=== PATIENT | female | born 1980 | race Two or more races ===

== ENCOUNTER → 2024-06-15 | Outpatient (CLI) | payer MEDICAID, SELFPAY ==
--- NOTE | 2024-06-15 14:00 | ECHO_ITS ---
Transthoracic Echo Report Ht (in): 60 Wt (lb): 149 Exam Location: Echo Lab Status: Preadmit Train Crew Member: Ashley Sotelo Indications: Procedure Performed: BP: / HR: Rhythm: Sinus Technical Quality: Fair MEASUREMENTS (Male / Female) Normal Values 2D ECHO LV Diastolic Diameter PLAX 4.0 cm 4.2 - 5.9 / 3.9 - 5.3 cm LV Systolic Diameter PLAX 2.8 cm IVS Diastolic Thickness 0.9 cm 0.6 - 1.0 / 0.6 - 0.9 cm LVPW Diastolic Thickness 0.8 cm 0.6 - 1.0 / 0.6 - 0.9 cm LV Relative Wall Thickness 0.4 LVOT Diameter 1.7 cm LA Volume Index 24.0 cm?/m? 16 - 28 cm?/m? Ascending Aorta Diameter 2.5 cm M-MODE Aortic Root Diameter MM 2.5 cm LA Systolic Diameter MM 3.9 cm LA Ao Ratio MM 1.6 AV Cusp Separation MM 2.1 cm DOPPLER AV Peak Velocity 136.0 cm/s AV Peak Gradient 7.4 mmHg AV Mean Gradient 4.0 mmHg AV Velocity Time Integral 27.3 cm LVOT Peak Velocity 131.0 cm/s LVOT Peak Gradient 6.9 mmHg LVOT Velocity Time Integral 24.1 cm AV Area Cont Eq vti 2.0 cm? AV Area Cont Eq pk 2.2 cm? MV Peak Velocity 87.5 cm/s MV Peak Gradient 3.1 mmHg MV Mean Velocity 56.5 cm/s MV Mean Gradient 1.0 mmHg MV Area PHT 4.2 cm? Mitral E Point Velocity 85.1 cm/s Mitral A Point Velocity 80.2 cm/s Mitral E to A Ratio 1.1 LV E' Lateral Velocity 15.5 cm/s Mitral E to LV E' Lateral Ratio 5.5 LV E' Septal Velocity 9.4 cm/s Mitral E to LV E' Septal Ratio 9.1 FINDINGS Left Ventricle Normal left ventricular size, wall thickness, systolic function with no obvious regional wall motion abnormalities. The ejection fraction is visually estimated at 55-60 %. Right Ventricle The right ventricle is normal in size and systolic function. Left Atrium The left atrium is normal by two-dimensional, color flow and Doppler imaging with no structural abnormalities, no thrombus formation present. Right Atrium The right atrium is normal by two-dimensional imaging, color flow and Doppler imaging with no struct ural abnormalities, no thrombus formation present. Atrial Septum The interatrial septum appears normal with no evidence of a shunt. Aorta The aorta is normal by two-dimensional, color flow and Doppler interrogation. Mitral Valve The mitral valve is normal by two-dimensional, color flow and Doppler interrogation. There is trace mitral valve regurgitation. Aortic Valve The aortic valve is trileaflet and normal by two-dimensional, color flow and Doppler interrogation. There is no significant aortic valve regurgitation. Tricuspid Valve The tricuspid valve is normal by two-dimensional, color flow and Doppler interrogation. There is tra ce tricuspid valve regurgitation. Pulmonic Valve There is no significant pulmonic valve regurgitation. Vessels The pulmonary artery appears normal. The inferior vena cava pulmonary and hepatic veins appear kenya l. Pericardium The pericardium is normal by two-dimensional imaging. There is no significant pericardial effusion. CONCLUSIONS Indication: Malignant neoplasm of right female breast. Normal LV size and function. Estimated EF 55-60% Normal RV size and function. Trace MR, TR. Dru Johnson (Electronically Signed) Final Date: 15 June 2024 19:05
== END | disposition home or self-care (01) ==
LOC: SDIM 14:07
PROVIDERS: Referring Provider Internal Medicine Hematology & Oncology; Visit Provider Internal Medicine Hematology & Oncology
DX: I08.1 Rheumatic disorders of both mitral and tricuspid valves (principal); C50.411 Malignant neoplasm of upper-outer quadrant of right female breast
CPT/HCPCS: 93306

== ENCOUNTER 2024-06-16 08:43 | Outpatient (RCR) | payer MEDICAID, SELFPAY ==
[2024-06-15 10:25] LABS: Basophils % (Auto) 1 % (0-2.5); Eosinophils # (Auto) 0.1 Thou/mm3 (0.0-0.5); Eosinophils % (Auto) 5 % (0-10); Hematocrit 34.3 % (36.0-46.0); Hemoglobin 11.2 g/dL (12.0-16.0); Immature Granulocytes % (Auto) 0 % (0-0); Immature Granulocytes Auto 0.01 Thou/mm3 (0.00-0.00); Lymphocytes % (Auto) 36 % (10-50); Mean Corpuscular HGB Conc 32.7 g/dl (31.0-37.0); Mean Corpuscular Hemoglobin 26.8 pg (25.0-35.0); Mean Corpuscular Volume 82 fL (80-100); Monocytes # (Auto) 0.4 Thou/mm3 (0.0-0.8); Monocytes % (Auto) 13 % (0-12); Neutrophils # (Auto) 1.3 Thou/mm3 (1.8-7.7); Neutrophils % (Auto) 45 % (37-80); Nucleated Red Blood Cell % 0 /100 WBC (0); Platelet Count 139 Thou/mm3 (140-440); RDW Standard Deviation 42.5 fL (36.4-46.3); Red Blood Count 4.18 Miln/mm3 (4.00-5.20)
[2024-06-15 10:46] LABS: White Blood Count 2.8 Thou/mm3 (3.6-11.0)
[2024-06-15 10:47] LABS: Alanine Aminotransferase 75 U/L (10-49); Albumin, Serum 4.4 gm/dL (3.5-5.0); Albumin/Globulin Ratio 1.6 (1.2-2.2); Alkaline Phosphatase 210 U/L (46-116); Anion Gap 7 (7-16); Aspartate Amino Transferase 77 U/L (0-34); BUN/Creatinine Ratio 26 Ratio (12-20); Bilirubin,Total 0.4 mg/dL (0.3-1.2); Blood Urea Nitrogen 13 mg/dL (9-23); Calcium 9.9 mg/dL (8.3-10.6); Calcium (Corrected) 9.9 mg/dL (8.5-10.1); Carbon Dioxide 23.9 mMol/L (20.0-31.0); Chloride 107 mMol/L (98-107); Creatinine (Component) 0.5 mg/dL (0.6-1.3); Globulin 2.8 gm/dL (2.3-3.5); Glucose 102 mg/dL (74-106); Osmolality,Calculated 275 (275-295); Potassium 3.3 mMol/L (3.4-5.1); Sodium 138 mMol/L (136-145); Total Protein 7.2 gm/dL (5.7-8.2); eGFR > 60 See Note
[2024-06-16 09:10] LABS: Basophils % (Auto) 1 % (0-2.5); Eosinophils # (Auto) 0.1 Thou/mm3 (0.0-0.5); Eosinophils % (Auto) 4 % (0-10); Hematocrit 32.8 % (36.0-46.0); Hemoglobin 10.9 g/dL (12.0-16.0); Immature Granulocytes % (Auto) 0 % (0-0); Lymphocytes # (Auto) 0.9 Thou/mm3 (1.0-4.8); Lymphocytes % (Auto) 38 % (10-50); Mean Corpuscular HGB Conc 33.2 g/dl (31.0-37.0); Mean Corpuscular Hemoglobin 27.5 pg (25.0-35.0); Mean Corpuscular Volume 83 fL (80-100); Monocytes # (Auto) 0.3 Thou/mm3 (0.0-0.8); Monocytes % (Auto) 11 % (0-12); Neutrophils # (Auto) 1.1 Thou/mm3 (1.8-7.7); Neutrophils % (Auto) 46 % (37-80); Nucleated Red Blood Cell % 0 /100 WBC (0); Platelet Count 122 Thou/mm3 (140-440); RDW Standard Deviation 42.5 fL (36.4-46.3); Red Blood Count 3.97 Miln/mm3 (4.00-5.20)
[2024-06-16 09:37] LABS: Alanine Aminotransferase 73 U/L (10-49); Albumin, Serum 4.3 gm/dL (3.5-5.0); Albumin/Globulin Ratio 1.6 (1.2-2.2); Alkaline Phosphatase 206 U/L (46-116); Anion Gap 4 (7-16); Aspartate Amino Transferase 77 U/L (0-34); BUN/Creatinine Ratio 40 Ratio (12-20); Bilirubin,Total 0.4 mg/dL (0.3-1.2); Blood Urea Nitrogen 16 mg/dL (9-23); Calcium 9.6 mg/dL (8.3-10.6); Calcium (Corrected) 9.6 mg/dL (8.5-10.1); Carbon Dioxide 25.8 mMol/L (20.0-31.0); Chloride 108 mMol/L (98-107); Creatinine (Component) 0.4 mg/dL (0.6-1.3); Globulin 2.7 gm/dL (2.3-3.5); Glucose 105 mg/dL (74-106); Osmolality,Calculated 276 (275-295); Potassium 3.5 mMol/L (3.4-5.1); Sodium 138 mMol/L (136-145); eGFR > 60 See Note
[2024-06-16 10:00] LABS: White Blood Count 2.4 Thou/mm3 (3.6-11.0)
== END 2024-06-25 23:59 | disposition home or self-care (01) ==
LOC: SCTC 08:43
PROVIDERS: Visit Provider Internal Medicine Hematology & Oncology
DX: Z51.11 Encounter for antineoplastic chemotherapy (principal); C50.811 Malignant neoplasm of overlapping sites of right female breast; Z17.421 Hormone receptor negative with human epidermal growth factor receptor 2 negative status; Z90.11 Acquired absence of right breast and nipple; N64.4 Mastodynia
CPT/HCPCS: 36591; 80053; 85025; 96367; 96413; A4216; J1642; J7050; J9354

== ENCOUNTER → 2024-06-22 | Outpatient (CLI) | payer MEDICAID, SELFPAY ==
--- NOTE | 2024-06-22 08:30 | XR_ITS ---
Examination: MRI brain with intravenous contrast TECHNIQUE: Multiple axial sagittal coronal brain MRI images post intravenous ministration 13 cc gadolinium Exam date and time: June 22, 2024 0857 hours Comparison June 03, 2023 INDICATIONS: Diagnosis malignant neoplasm upper outer quadrant right female breast post mastectomy chemotherapy radiation therapy, staging FINDINGS: Ventricles are normal in size and configuration No mass effect upon the ventricular system No effacement sulcal markings No pituitary macroadenoma microadenoma No abnormal enhancing cerebellar or cerebral lesions IMPRESSION: No abnormal enhancing cerebellar or cerebral lesions
== END | disposition home or self-care (01) ==
LOC: SMRI 07:57
PROVIDERS: PCP Registered Nurse Community Health; Referring Provider Internal Medicine Hematology & Oncology; Visit Provider Internal Medicine Hematology & Oncology
DX: C50.411 Malignant neoplasm of upper-outer quadrant of right female breast (principal)
CPT/HCPCS: 70552; A9579

== ENCOUNTER → 2024-06-29 | Outpatient (CLI) | payer MEDICAID, SELFPAY ==
--- NOTE | 2024-06-29 10:30 | XR_ITS ---
Examination: CT chest with intravenous contrast 2-D sagittal and coronal reconstructions Exam date and time: June 29, 2024 10:52 AM Comparison March 16, 2024 INDICATIONS: Diagnosis malignant neoplasm upper outer quadrant right female breast April 2023, left shoulder pain 2 months, restaging CTDI:vol (mGy) 12.3 DLP: (mGycm) 471 Technique: Multiple axial sections of the thorax have been obtained. Sections have been obtained, 3 mm slice thickness. Mediastinal and lung density settings have been obtained. Intravenous contrast administered, 60 cc Isovue-370. 2-D sagittal, coronal images obtained. Low dose protocols were performed. One or more of the following dose reduction techniques were used; automated exposure control, adjustment of the mA and/or KV according to patient size, use of iterative reconstruction technique. Findings: Right mastectomy Right axillary surgical clips and scar formation in the right axilla Pleural reaction anterior right hemithorax which may be secondary to radiation therapy The aorta pulmonary arteries are not enlarged No paratracheal tracheobronchial or bronchopulmonary adenopathy No interval pneumonia, pulmonary edema, pleural fluid or pulmonary nodules No liver or splenic lesion No gallstones No pancreatic mass Aorta normal size No abdominal lymphadenopathy visualized IMPRESSION: No interval metastatic disease
== END | disposition home or self-care (01) ==
PROVIDERS: PCP Registered Nurse Community Health; Referring Provider Internal Medicine Hematology & Oncology; Visit Provider Internal Medicine Hematology & Oncology
DX: M25.512 Pain in left shoulder (principal); C50.411 Malignant neoplasm of upper-outer quadrant of right female breast
CPT/HCPCS: 71260; A4649; Q9967

== ENCOUNTER → 2024-06-30 | Outpatient (CLI) | payer MEDICAID, SELFPAY ==
--- NOTE | 2024-06-30 10:15 | XR_ITS ---
EXAMINATION: PET/CT FUSION SKULL TO THIGH EXAM DATE AND TIME: June 30, 2024 1105 hours Comparison November 05, 2023 INDICATIONS: Diagnosis breast cancer post treatment restaging CTDI:vol (mGy) 4.43 DLP: (mGycm) 404 PROCEDURE: 16 mCi FDG was administered intravenously To allow for distribution and uptake of radiotracer, the patient was allowed to rest quietly in a shielded room. Imaging was performed on an integrated 16-slice PET/CT scanner, with scanning from the skull base to the mid thigh. Serum blood glucose at the time of the injection was measured 92 mg/dL. CT scanning was performed without oral or intravenous contrast material. FINDINGS: Head and Neck: There is no willie hypermetabolism in the neck. The visualized portions of the brain are normal in appearance on CT. Chest: Right mastectomy Surgical clips in the right axilla No hypermetabolic breast chest wall or axillary lymphadenopathy Presumed post irradiation change in the anterior pleural surface right hemithorax Abdomen and Pelvis: There is no willie hypermetabolism in retroperitoneal or pelvic chains. The spleen is normal in size and FDG avidity. Musculoskeletal: Marrow uptake is within normal range. IMPRESSION: No interval metastatic disease
== END | disposition home or self-care (01) ==
LOC: CDIM 09:48
PROVIDERS: PCP Registered Nurse Community Health; Referring Provider Specialist; Visit Provider Specialist
DX: C50.919 Malignant neoplasm of unspecified site of unspecified female breast (principal)
CPT/HCPCS: 78815; A9552

== ENCOUNTER 2024-07-26 08:23 | Outpatient (RCR) | payer MEDICAID, SELFPAY ==
[2024-07-06 11:38] LABS: Basophils % (Auto) 1 % (0-2.5); Eosinophils # (Auto) 0.1 Thou/mm3 (0.0-0.5); Eosinophils % (Auto) 3 % (0-10); Hematocrit 33.1 % (36.0-46.0); Hemoglobin 10.9 g/dL (12.0-16.0); Immature Granulocytes % (Auto) 0 % (0-0); Lymphocytes # (Auto) 1.1 Thou/mm3 (1.0-4.8); Lymphocytes % (Auto) 39 % (10-50); Mean Corpuscular HGB Conc 32.9 g/dl (31.0-37.0); Mean Corpuscular Volume 79 fL (80-100); Monocytes # (Auto) 0.3 Thou/mm3 (0.0-0.8); Monocytes % (Auto) 12 % (0-12); Neutrophils # (Auto) 1.2 Thou/mm3 (1.8-7.7); Neutrophils % (Auto) 44 % (37-80); Nucleated Red Blood Cell % 0 /100 WBC (0); Platelet Count 140 Thou/mm3 (140-440); RDW Standard Deviation 43.8 fL (36.4-46.3)
[2024-07-06 11:56] LABS: Alanine Aminotransferase 51 U/L (10-49); Albumin, Serum 4.6 gm/dL (3.5-5.0); Albumin/Globulin Ratio 1.8 (1.2-2.2); Alkaline Phosphatase 235 U/L (46-116); Anion Gap 9 (7-16); Aspartate Amino Transferase 58 U/L (0-34); BUN/Creatinine Ratio 24 Ratio (12-20); Bilirubin,Total 0.4 mg/dL (0.3-1.2); Blood Urea Nitrogen 12 mg/dL (9-23); Calcium 9.9 mg/dL (8.3-10.6); Calcium (Corrected) 9.9 mg/dL (8.5-10.1); Carbon Dioxide 25.2 mMol/L (20.0-31.0); Chloride 106 mMol/L (98-107); Creatinine (Component) 0.5 mg/dL (0.6-1.3); Globulin 2.6 gm/dL (2.3-3.5); Glucose 92 mg/dL (74-106); Osmolality,Calculated 279 (275-295); Potassium 3.4 mMol/L (3.4-5.1); Sodium 140 mMol/L (136-145); Total Protein 7.2 gm/dL (5.7-8.2); eGFR > 60 See Note
[2024-07-06 12:21] LABS: White Blood Count 2.7 Thou/mm3 (3.6-11.0)
[2024-07-26 08:59] LABS: Basophils % (Auto) 1 % (0-2.5); Eosinophils # (Auto) 0.1 Thou/mm3 (0.0-0.5); Eosinophils % (Auto) 4 % (0-10); Hematocrit 34.7 % (36.0-46.0); Hemoglobin 11.3 g/dL (12.0-16.0); Immature Granulocytes % (Auto) 0 % (0-0); Lymphocytes # (Auto) 1.3 Thou/mm3 (1.0-4.8); Lymphocytes % (Auto) 45 % (10-50); Mean Corpuscular HGB Conc 32.6 g/dl (31.0-37.0); Mean Corpuscular Hemoglobin 25.1 pg (25.0-35.0); Mean Corpuscular Volume 77 fL (80-100); Monocytes # (Auto) 0.4 Thou/mm3 (0.0-0.8); Monocytes % (Auto) 13 % (0-12); Neutrophils # (Auto) 1.1 Thou/mm3 (1.8-7.7); Neutrophils % (Auto) 38 % (37-80); Nucleated Red Blood Cell % 0 /100 WBC (0); Platelet Count 110 Thou/mm3 (140-440); RDW Standard Deviation 47.2 fL (36.4-46.3)
[2024-07-26 09:20] LABS: Alanine Aminotransferase 62 U/L (10-49); Albumin, Serum 4.3 gm/dL (3.5-5.0); Albumin/Globulin Ratio 1.6 (1.2-2.2); Alkaline Phosphatase 268 U/L (46-116); Anion Gap 9 (7-16); Aspartate Amino Transferase 88 U/L (0-34); BUN/Creatinine Ratio 25 Ratio (12-20); Bilirubin,Total 0.8 mg/dL (0.3-1.2); Blood Urea Nitrogen 10 mg/dL (9-23); Calcium 10.6 mg/dL (8.3-10.6); Calcium (Corrected) 10.6 mg/dL (8.5-10.1); Carbon Dioxide 25.2 mMol/L (20.0-31.0); Chloride 107 mMol/L (98-107); Creatinine (Component) 0.4 mg/dL (0.6-1.3); Globulin 2.7 gm/dL (2.3-3.5); Glucose 92 mg/dL (74-106); Osmolality,Calculated 280 (275-295); Potassium 3.5 mMol/L (3.4-5.1); Sodium 141 mMol/L (136-145); eGFR > 60 See Note
== END 2024-07-26 23:59 | disposition home or self-care (01) ==
LOC: SCTC 08:23
PROVIDERS: PCP Registered Nurse Community Health; Referring Provider Registered Nurse Community Health; Visit Provider Internal Medicine Hematology & Oncology
DX: Z51.11 Encounter for antineoplastic chemotherapy (principal); C50.811 Malignant neoplasm of overlapping sites of right female breast; Z17.421 Hormone receptor negative with human epidermal growth factor receptor 2 negative status; Z90.11 Acquired absence of right breast and nipple
CPT/HCPCS: 36591; 80053; 85025; 96367; 96372; 96413; A4216; J1100; J1642; J2405; J3490; J7050; J9354

== ENCOUNTER 2024-08-25 09:33 | Outpatient (RCR) | payer MEDICAID, SELFPAY ==
[2024-08-03 16:15] LABS: Basophils % (Auto) 1 % (0-2.5); Eosinophils # (Auto) 0.1 Thou/mm3 (0.0-0.5); Eosinophils % (Auto) 3 % (0-10); Hematocrit 32.8 % (36.0-46.0); Hemoglobin 10.7 g/dL (12.0-16.0); Immature Granulocytes % (Auto) 0 % (0-0); Immature Granulocytes Auto 0.01 Thou/mm3 (0.00-0.00); Lymphocytes # (Auto) 1.2 Thou/mm3 (1.0-4.8); Lymphocytes % (Auto) 38 % (10-50); Mean Corpuscular HGB Conc 32.6 g/dl (31.0-37.0); Mean Corpuscular Hemoglobin 25.1 pg (25.0-35.0); Mean Corpuscular Volume 77 fL (80-100); Monocytes # (Auto) 0.4 Thou/mm3 (0.0-0.8); Monocytes % (Auto) 12 % (0-12); Neutrophils # (Auto) 1.5 Thou/mm3 (1.8-7.7); Neutrophils % (Auto) 47 % (37-80); Nucleated Red Blood Cell % 0 /100 WBC (0); Platelet Count 159 Thou/mm3 (140-440); RDW Standard Deviation 50.8 fL (36.4-46.3); Red Blood Count 4.27 Miln/mm3 (4.00-5.20); White Blood Count 3.3 Thou/mm3 (3.6-11.0)
[2024-08-03 16:39] LABS: Alanine Aminotransferase 81 U/L (10-49); Albumin, Serum 4.6 gm/dL (3.5-5.0); Albumin/Globulin Ratio 1.8 (1.2-2.2); Alkaline Phosphatase 284 U/L (46-116); Anion Gap 9 (7-16); Aspartate Amino Transferase 82 U/L (0-34); BUN/Creatinine Ratio 22 Ratio (12-20); Bilirubin,Total 0.8 mg/dL (0.3-1.2); Blood Urea Nitrogen 11 mg/dL (9-23); Calcium 9.8 mg/dL (8.3-10.6); Calcium (Corrected) 9.8 mg/dL (8.5-10.1); Carbon Dioxide 26.6 mMol/L (20.0-31.0); Chloride 106 mMol/L (98-107); Creatinine (Component) 0.5 mg/dL (0.6-1.3); Globulin 2.6 gm/dL (2.3-3.5); Glucose 106 mg/dL (74-106); Osmolality,Calculated 282 (275-295); Potassium 3.8 mMol/L (3.4-5.1); Sodium 142 mMol/L (136-145); Total Protein 7.2 gm/dL (5.7-8.2); eGFR > 60 See Note
[2024-08-24 16:50] LABS: Basophils % (Auto) 1 % (0-2.5); Eosinophils # (Auto) 0.1 Thou/mm3 (0.0-0.5); Eosinophils % (Auto) 2 % (0-10); Hematocrit 33.8 % (36.0-46.0); Immature Granulocytes % (Auto) 0 % (0-0); Lymphocytes # (Auto) 1.5 Thou/mm3 (1.0-4.8); Lymphocytes % (Auto) 34 % (10-50); Mean Corpuscular HGB Conc 32.5 g/dl (31.0-37.0); Mean Corpuscular Hemoglobin 25.1 pg (25.0-35.0); Mean Corpuscular Volume 77 fL (80-100); Monocytes # (Auto) 0.4 Thou/mm3 (0.0-0.8); Monocytes % (Auto) 10 % (0-12); Neutrophils # (Auto) 2.2 Thou/mm3 (1.8-7.7); Neutrophils % (Auto) 53 % (37-80); Nucleated Red Blood Cell % 0 /100 WBC (0); Platelet Count 175 Thou/mm3 (140-440); RDW Standard Deviation 57.4 fL (36.4-46.3); Red Blood Count 4.39 Miln/mm3 (4.00-5.20); White Blood Count 4.2 Thou/mm3 (3.6-11.0)
[2024-08-24 17:11] LABS: Alanine Aminotransferase 71 U/L (10-49); Albumin, Serum 4.4 gm/dL (3.5-5.0); Alkaline Phosphatase 251 U/L (46-116); Aspartate Amino Transferase 71 U/L (0-34); BUN/Creatinine Ratio 20 Ratio (12-20); Blood Urea Nitrogen 12 mg/dL (9-23); Calcium 9.5 mg/dL (8.3-10.6); Calcium (Corrected) 9.5 mg/dL (8.5-10.1); Carbon Dioxide 26.2 mMol/L (20.0-31.0); Creatinine (Component) 0.6 mg/dL (0.6-1.3); Glucose 102 mg/dL (74-106); eGFR > 60 See Note
[2024-08-24 17:22] LABS: Albumin/Globulin Ratio 1.6 (1.2-2.2); Bilirubin,Total 0.9 mg/dL (0.3-1.2); Globulin 2.8 gm/dL (2.3-3.5); Total Protein 7.2 gm/dL (5.7-8.2)
[2024-08-24 17:26] LABS: Anion Gap 11 (7-16); Chloride 103 mMol/L (98-107); Osmolality,Calculated 279 (275-295); Potassium 3.3 mMol/L (3.4-5.1); Sodium 140 mMol/L (136-145)
== END 2024-08-26 23:59 | disposition home or self-care (01) ==
LOC: SCTC 09:33
PROVIDERS: PCP Registered Nurse Community Health; Referring Provider Registered Nurse Community Health; Visit Provider Internal Medicine Hematology & Oncology
DX: Z51.11 Encounter for antineoplastic chemotherapy (principal); C50.811 Malignant neoplasm of overlapping sites of right female breast; Z17.1 Estrogen receptor negative status [ER-]; Z17.22 Progesterone receptor negative status; Z17.32 Human epidermal growth factor receptor 2 negative status; Z90.11 Acquired absence of right breast and nipple; Z92.3 Personal history of irradiation
CPT/HCPCS: 36591; 80053; 85025; 96360; 96367; 96413; A4216; J1100; J1642; J2405; J7030; J7050; J9354

== ENCOUNTER 2024-09-13 16:28 | Emergency (ER) | payer MEDICAID, SELFPAY ==
[2024-09-13 16:52] VITALS: BP 105/70; PULSE 79; RESP 16; TEMP 37.1; O2SAT 97; BMI 24.1
--- NOTE | 2024-09-13 17:01 | PD.EDRME ---
Rapid Medical Screening Exam RME Arrival date/time: 09/13/24 16:28 Chief Complaint: Recheck/Abnormal Lab/Rx Time Seen by Provider: 09/13/24 16:47 Vital signs: Vital Signs Temperature 98.7 F 09/13/24 16:52 Pulse Rate 79 09/13/24 16:52 Respiratory Rate 16 09/13/24 16:52 Blood Pressure 105/70 09/13/24 16:52 Pulse Oximetry (%) 97 09/13/24 16:52 Oxygen Delivery Method Room Air 09/13/24 16:52 RME Narrative: 44 yo female presents stating they were told to come to the ED for an MRI. States LFTs elevated outpatient and Dr. Juarez told them to come to the ED to get an MRI. I have greeted and performed a focused initial assessment of this patient. A comprehensive ED assessment and evaluation of the patient, analysis of all test results, and completion of the medical decision making process will be conducted by additional ED providers.
== END 2024-09-13 18:18 | disposition left against medical advice (07) ==
PROVIDERS: Emergency Provider Emergency Medicine
DX: R74.01 Elevation of levels of liver transaminase levels (principal); Z53.29 Procedure and treatment not carried out because of patient's decision for other reasons
CPT/HCPCS: 99281

== ENCOUNTER → 2024-09-17 | Outpatient (CLI) | payer MEDICAID, SELFPAY ==
--- NOTE | 2024-09-17 08:00 | XR_ITS ---
Examination: MRI abdomen with intravenous contrast. MRI abdomen without intravenous contrast. Date and time of exam: September 17, 2024 0811 hrs. Indications: Diagnosis malignant neoplasm upper outer quadrant right female breast, abnormal liver enzymes on laboratory examination this month Technique: Multiple axial, sagittal and coronal sections of the abdomen obtained. Transverse images, TR 6020, TE 107. T1 weighted transverse images, TR 582, TE 9.5. T2-weighted sagittal images, TR 4000, TE 105. T2-weighted sagittal images, TR 4000, TE 5. Coronal images, TR 4210, TE 107. Axial and coronal images are obtained post 20 cc intravenous injection, gadolinium. Findings: Precontrast images demonstrate no focal liver lesion Suspicious for tiny 1 to 2 mm gallstone No common hepatic common bile duct stones No pancreatic mass Spleen is not enlarged No hydronephrosis No ascites No retroperitoneal lymphadenopathy Postcontrast images demonstrate no abnormal liver or splenic or renal enhancing lesion Impression: No focal liver lesions Suspicious for cholelithiasis No abdominal lymphadenopathy Negative for ascites
== END | disposition home or self-care (01) ==
LOC: SMRI 08:04
PROVIDERS: Referring Provider Internal Medicine Hematology & Oncology; Visit Provider Internal Medicine Hematology & Oncology
DX: C50.411 Malignant neoplasm of upper-outer quadrant of right female breast (principal)
CPT/HCPCS: 74183; A9579

== ENCOUNTER 2024-09-22 10:25 | Outpatient (RCR) | payer MEDICAID, SELFPAY ==
[2024-08-31 12:19] LABS: Basophils % (Auto) 1 % (0-2.5); Eosinophils # (Auto) 0.1 Thou/mm3 (0.0-0.5); Eosinophils % (Auto) 3 % (0-10); Hematocrit 35.5 % (36.0-46.0); Hemoglobin 11.4 g/dL (12.0-16.0); Immature Granulocytes % (Auto) 0 % (0-0); Immature Granulocytes Auto 0.01 Thou/mm3 (0.00-0.00); Lymphocytes # (Auto) 1.2 Thou/mm3 (1.0-4.8); Lymphocytes % (Auto) 35 % (10-50); Mean Corpuscular HGB Conc 32.1 g/dl (31.0-37.0); Mean Corpuscular Hemoglobin 24.7 pg (25.0-35.0); Mean Corpuscular Volume 77 fL (80-100); Monocytes # (Auto) 0.4 Thou/mm3 (0.0-0.8); Monocytes % (Auto) 11 % (0-12); Neutrophils # (Auto) 1.7 Thou/mm3 (1.8-7.7); Neutrophils % (Auto) 50 % (37-80); Nucleated Red Blood Cell % 0 /100 WBC (0); Platelet Count 157 Thou/mm3 (140-440); RDW Standard Deviation 61.3 fL (36.4-46.3); Red Blood Count 4.62 Miln/mm3 (4.00-5.20); White Blood Count 3.5 Thou/mm3 (3.6-11.0)
[2024-08-31 12:53] LABS: Alanine Aminotransferase 89 U/L (10-49); Albumin, Serum 4.3 gm/dL (3.5-5.0); Albumin/Globulin Ratio 1.4 (1.2-2.2); Alkaline Phosphatase 296 U/L (46-116); Anion Gap 8 (7-16); Aspartate Amino Transferase 104 U/L (0-34); BUN/Creatinine Ratio 22 Ratio (12-20); Bilirubin,Total 1.3 mg/dL (0.3-1.2); Blood Urea Nitrogen 11 mg/dL (9-23); Calcium 9.6 mg/dL (8.3-10.6); Calcium (Corrected) 9.6 mg/dL (8.5-10.1); Carbon Dioxide 24.9 mMol/L (20.0-31.0); Chloride 106 mMol/L (98-107); Creatinine (Component) 0.5 mg/dL (0.6-1.3); Globulin 3.1 gm/dL (2.3-3.5); Glucose 118 mg/dL (74-106); Osmolality,Calculated 277 (275-295); Sodium 139 mMol/L (136-145); Total Protein 7.4 gm/dL (5.7-8.2); eGFR > 60 See Note
[2024-09-07 15:51] LABS: Basophils % (Auto) 0 % (0-2.5); Eosinophils # (Auto) 0.1 Thou/mm3 (0.0-0.5); Eosinophils % (Auto) 2 % (0-10); Hematocrit 35.1 % (36.0-46.0); Hemoglobin 11.2 g/dL (12.0-16.0); Immature Granulocytes % (Auto) 0 % (0-0); Lymphocytes # (Auto) 1.3 Thou/mm3 (1.0-4.8); Lymphocytes % (Auto) 29 % (10-50); Mean Corpuscular HGB Conc 31.9 g/dl (31.0-37.0); Mean Corpuscular Hemoglobin 24.8 pg (25.0-35.0); Mean Corpuscular Volume 78 fL (80-100); Monocytes # (Auto) 0.4 Thou/mm3 (0.0-0.8); Monocytes % (Auto) 9 % (0-12); Neutrophils # (Auto) 2.6 Thou/mm3 (1.8-7.7); Neutrophils % (Auto) 59 % (37-80); Nucleated Red Blood Cell % 0 /100 WBC (0); Platelet Count 192 Thou/mm3 (140-440); RDW Standard Deviation 63.5 fL (36.4-46.3); Red Blood Count 4.52 Miln/mm3 (4.00-5.20); White Blood Count 4.5 Thou/mm3 (3.6-11.0)
[2024-09-07 16:14] LABS: Alanine Aminotransferase 114 U/L (10-49); Albumin, Serum 4.5 gm/dL (3.5-5.0); Albumin/Globulin Ratio 1.5 (1.2-2.2); Alkaline Phosphatase 349 U/L (46-116); Anion Gap 4 (7-16); Aspartate Amino Transferase 100 U/L (0-34); BUN/Creatinine Ratio 25 Ratio (12-20); Bilirubin,Total 0.8 mg/dL (0.3-1.2); Blood Urea Nitrogen 10 mg/dL (9-23); Calcium 10.1 mg/dL (8.3-10.6); Calcium (Corrected) 10.1 mg/dL (8.5-10.1); Carbon Dioxide 25.8 mMol/L (20.0-31.0); Chloride 108 mMol/L (98-107); Creatinine (Component) 0.4 mg/dL (0.6-1.3); Glucose 85 mg/dL (74-106); Osmolality,Calculated 273 (275-295); Potassium 3.5 mMol/L (3.4-5.1); Sodium 138 mMol/L (136-145); Total Protein 7.5 gm/dL (5.7-8.2); eGFR > 60 See Note
[2024-09-21 09:51] LABS: Basophils % (Auto) 0 % (0-2.5); Eosinophils # (Auto) 0.1 Thou/mm3 (0.0-0.5); Eosinophils % (Auto) 2 % (0-10); Hematocrit 34.9 % (36.0-46.0); Hemoglobin 11.5 g/dL (12.0-16.0); Immature Granulocytes % (Auto) 0 % (0-0); Immature Granulocytes Auto 0.01 Thou/mm3 (0.00-0.00); Lymphocytes # (Auto) 1.2 Thou/mm3 (1.0-4.8); Lymphocytes % (Auto) 35 % (10-50); Mean Corpuscular Volume 79 fL (80-100); Monocytes # (Auto) 0.3 Thou/mm3 (0.0-0.8); Monocytes % (Auto) 10 % (0-12); Neutrophils # (Auto) 1.7 Thou/mm3 (1.8-7.7); Neutrophils % (Auto) 52 % (37-80); Nucleated Red Blood Cell % 0 /100 WBC (0); Platelet Count 175 Thou/mm3 (140-440); RDW Standard Deviation 65.3 fL (36.4-46.3); Red Blood Count 4.42 Miln/mm3 (4.00-5.20); White Blood Count 3.3 Thou/mm3 (3.6-11.0)
[2024-09-21 10:10] LABS: Alanine Aminotransferase 145 U/L (10-49); Albumin, Serum 4.5 gm/dL (3.5-5.0); Albumin/Globulin Ratio 1.5 (1.2-2.2); Alkaline Phosphatase 383 U/L (46-116); Anion Gap 10 (7-16); Aspartate Amino Transferase 116 U/L (0-34); BUN/Creatinine Ratio 24 Ratio (12-20); Blood Urea Nitrogen 12 mg/dL (9-23); Calcium 10.3 mg/dL (8.3-10.6); Calcium (Corrected) 10.3 mg/dL (8.5-10.1); Carbon Dioxide 25.5 mMol/L (20.0-31.0); Chloride 107 mMol/L (98-107); Creatinine (Component) 0.5 mg/dL (0.6-1.3); Glucose 87 mg/dL (74-106); Osmolality,Calculated 281 (275-295); Potassium 3.7 mMol/L (3.4-5.1); Sodium 142 mMol/L (136-145); Total Protein 7.5 gm/dL (5.7-8.2); eGFR > 60 See Note
[2024-09-22 13:26] LABS: Alanine Aminotransferase 217 U/L (10-49); Albumin, Serum 4.5 gm/dL (3.5-5.0); Albumin/Globulin Ratio 1.5 (1.2-2.2); Alkaline Phosphatase 406 U/L (46-116); Anion Gap 10 (7-16); Aspartate Amino Transferase 186 U/L (0-34); BUN/Creatinine Ratio 18 Ratio (12-20); Bilirubin,Total 0.8 mg/dL (0.3-1.2); Blood Urea Nitrogen 9 mg/dL (9-23); Calcium 9.7 mg/dL (8.3-10.6); Calcium (Corrected) 9.7 mg/dL (8.5-10.1); Carbon Dioxide 26.2 mMol/L (20.0-31.0); Chloride 105 mMol/L (98-107); Creatinine (Component) 0.5 mg/dL (0.6-1.3); Globulin 3.1 gm/dL (2.3-3.5); Glucose 114 mg/dL (74-106); Osmolality,Calculated 280 (275-295); Potassium 3.8 mMol/L (3.4-5.1); Sodium 141 mMol/L (136-145); Total Protein 7.6 gm/dL (5.7-8.2); eGFR > 60 See Note
--- NOTE | 2024-09-22 18:47 | CTCFLWUP_ITS ---
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)., ER negative, OR negative, HER2/pranay overexpressed s/p biopsy of right breast mass as well as right axillary lesions on 05/05/2023 STAGE/TNM: Stage 3 TREATMENT HISTORY: Care?Plan Start?Date Cycle Day Intent DOCETAXEL,?CARBO,?HERCEPTIN,?PERJETA,?KADCYLA 06/08/2023 1 21 Curative?(primary) Taxol?80mg*2?wkly,?Herceptin,?Perjeta 07/12/2023 1 21 Curative?(primary) Taxotere,?Carboplatin,?Trastuzumab?1 07/21/2023 1 21 Curative?(primary) Zoledronic?Acid?4?mg?adjuvant 01/06/2024 1 180 Curative?(adjuvant) DOXOrubicin?60,?Cyclophos?600 01/21/2024 1 14 Curative?(adjuvant) KADCYLA?post-neoadjuvant 03/24/2024 1 21 Curative?(adjuvant) Trastuzumab?6?mg/kg? To?Finish?the?Year 09/22/2024 1 21 Curative?(adjuvant) HISTORY OF PRESENT ILLNESS: Fmei Khan is a 44-year-old SPA speaking female without any significant past medical history has the following oncology history. 07/04/2019: Ms. Khan had right breast diagnostic mammogram for right breast pain of 1 year duration along with palpable masses in the right breast on clinical breast examination 2 months before 07/04/2019: Right breast ultrasound 08/16/2020: Bilateral diagnostic digital mammography? 08/16/2020: Right breast ultrasound was obtained for unspecified lump in the right breast 02/18/2022: Bilateral screening digital mammograms 02/02/2023: Bilateral screening mammograms 04/02/2023: Right breast ultrasound 04/02/2023: Right breast diagnosed mammogram? 04/21/2023: Right breast diagnostic mammogram 05/05/2023: Ultrasound-guided percutaneous biopsy of the right breast mass 05/25/2023: PET/CT scan 05/27/2023: BRCA 1and2 1 and 2 urinalysis 06/08/2023: AST 26, ALT 37, T. bili 0.4 06/08/2023: Ms. Bunch had first cycle of TCHP chemotherapy in the neoadjuvant setting. 06/26/2023: AST 52, ALT 78, T. bili 0.6 06/29/2023: AST 50, ALT 88 07/02/2023: AST 60, ALT 127, alk phos 121 07/07/2023: AST 22, ALT 52, alkaline phosphatase 115. 07/07/2023: Chemotherapy changed to weekly Taxol, Herceptin and Perjeta in view of elevated transaminases. 07/14/2023: AST 81, ALT 125, alk phos 145. 07/07/2023: Ultrasound of the abdomen 07/14/2023: Hepatitis panel negative 07/21/2023: AST 38, ALT 58, alkaline phosphatase 154. 07/21/2023: Ms. uBnch received Taxotere, carboplatin and trastuzumab. Perjeta held again due to elevated liver enzymes. 08/11/2023: Ms. Bunch received second cycle of Taxotere, carboplatin and trastuzumab. 09/01/2023: Ms. Bunch received third cycle of Taxotere, carboplatin and trastuzumab. 09/22/2023: Ms. Bunch received fourth cycle of Taxotere, carboplatin and trastuzumab chemotherapy 11/05/2023: PET/CT scan 11/06/2023: Bilateral breast MRI with and without contrast 12/03/2022: Ms. Bunch had what appears to be right-sided modified radical mastectomy at [facility]. 03/16/2024: CT scan of the chest abdomen pelvis with IV contrast 03/20/2024: Ms. Bunch is started on adjuvant radiation therapy to the right chest wall in [place]. 03/24/2024: Ms. Bunch is started on adjuvant Ado-Trastuzumab Emtansine (Kadcyla) OTHER MEDICAL HISTORY/CONDITIONS: BREAST?CA,?COVID ?2017,?TUBAL?LIGATION?2017 ?Clone Other Med Hx? FAMILY HISTORY: Father:?DENIES Mother:?DENIES Sibling:?DENIES Children:?DENIES Cancer History:?paternal aunt stomach living maternal aunt colon living Patient?denies?family?cancer?history. ?Clone Family Hx? SOCIAL HISTORY: Occupational?History:?[employer] Education?Level:?Completed High School Marital?Status:? 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 MEDICATIONS: 1. None?[place] Meds? Medications Last Reconciled by Carissa Oliveira MA on 09/22/2024 ALLERGIES: PENICILLAMINE REVIEW OF SYSTEMS: A complete 14-point review of systems was performed and is negative except as noted in interval history. PHYSICAL EXAMINATION: VITAL SIGNS: Temperature?98.2, B/P?105/69, Oxygen?Saturation?99% Weight?144?lbs (Change?since?09/21/24:?1?lbs) PAIN: 0 - No pain ECOG Performance Status: 0 - Asymptomatic and fully active GENERAL APPEARANCE: Appears well, in no apparent distress, appropriately interactive. HEENT: Normocephalic, no temporal wasting, normal conjunctiva, no scleral icterus, normal hearing, lips without lesions, neck normal range of motion. CARDIOVASCULAR: Not assessed. PULMONARY: Normal respiratory effort, no respiratory distress or use of accessory muscles, speaking in full sentences, no tachypnea. EXTREMITIES: No pedal edema or cyanosis. SKIN: Normal skin appearance. NEUROLOGIC: Alert and oriented x4. PSHYCHIATRIC: Appropriate affect, mood normal, behavior normal, intact thought and speech. LABORATORY DATA: I have personally reviewed and interpreted each of the patient?s relevant lab tests, abnormal findings are below: Date 09/22/24 ??GLUCOSE,RANDOM?(mg/dL) 114?H ??BLOOD?UREA?NITROGEN?(mg/dL) 9 ??CREATININE?(mg/dL) 0.50?L ??SODIUM?(mmol/L) 141 ??POTASSIUM?(mmol/L) 3.8 ??CHLORIDE?(mmol/L) 105 ??CrCl?(CandG)?(ml/min) 149.59 ??AST/SGOT?(Unit/L) 186?H ??ALT/SGPT?(Unit/L) 217?H ??ALKALINE?PHOSPHATASE?(Unit/L) 406?H ??BILIRUBIN,?TOTAL?(mg/dL) 0.8 ??PROTEIN?TOTAL?(gm/dl) 7.6 ??ALBUMIN,?SERUM?(gm/dl) 4.5 ??GLOBULIN?(gm/dl) 3.1 ??ALBUMIN/GLOBULIN?RATIO 1.5 ??CALCIUM,?SERUM?(mg/dL) 9.7 ??CALCIUM?SERUM?(CORRECTED)?(mg/dL) 9.7 ASSESSMENT/PLAN: Stage IIIb (cT4d, cN2a, 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 [place]. [place] [facility] [place] patient has been getting kadcyla last dose was in 07/2024 patient have worsening transaminitis will stop kadcyla and start Herceptin once lft show down trend her imaging of liver os negative will get pathology review [facility] the [facility] ORDERS: Cbc,cmp,psa RETURN TO CLINIC: 3 months BILLING AND COMPLIANCE: I reviewed external records from providers outside my specialty as summarized above. I spent a total of 50 minutes on this patient?s care on the day of their visit excluding time spent related to any billed procedures. This time includes time spent with the patient as well as time spent documenting in the medical record, reviewing patients records and tests, obtaining history, placing orders, communicating with other healthcare professionals, counseling the patient, family or caregiver, and/or care coordination for the diagnoses above. Electronically Signed by: Orville Juarez MD T: 6:45 PM CC: PCP: Krysta Oliveira Referring: Krysta Oliveira This document was completed utilizing speech recognition software. Grammatical errors, random word insertions, pronoun errors, and incomplete sentences are an occasional consequence of this system due to software limitations, ambient noise, and hardware issues. Any formal questions or concerns about the content, text or information contained within the body of this dictation should be directly addressed to the provider for clarification.
--- NOTE | 2024-09-25 23:41 | CTCFLWUP_ITS ---
Patient: FEMI CARDENAS : 1980 Page 10 of 11 FOLLOW UP NOTE DATE OF SERVICE: 09/13/2024 NAME: FEMI CARDENAS ACCOUNT: [id number] : 1980 AGE: 44 INTERVAL HISTORY: Patient have no clinical signs and symptoms. 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)., ER negative, ID negative, HER2/pranay overexpressed s/p biopsy of right breast mass as well as right axillary lesions on 05/05/2023 TREATMENT HISTORY: Care?Plan Start?Date Cycle Day Intent DOCETAXEL,?CARBO,?HERCEPTIN,?PERJETA,?KADCYLA 06/08/2023 1 21 Curative?(primary) Taxol?80mg*2?wkly,?Herceptin,?Perjeta 07/12/2023 1 21 Curative?(primary) Taxotere,?Carboplatin,?Trastuzumab?1 07/21/2023 1 21 Curative?(primary) Zoledronic?Acid?4?mg?adjuvant 01/06/2024 1 180 Curative?(adjuvant) DOXOrubicin?60,?Cyclophos?600 01/21/2024 1 14 Curative?(adjuvant) KADCYLA?post-neoadjuvant 03/24/2024 1 21 Curative?(adjuvant) Trastuzumab?6?mg/kg? To?Finish?the?Year 09/22/2024 1 21 Curative?(adjuvant) HISTORY OF PRESENT ILLNESS: Femi Khan is a 44-year-old SPA speaking female without any significant past medical history has the following oncology history. 07/04/2019: Ms. Khan had right breast diagnostic mammogram for right breast pain of 1 year duration along with palpable masses in the right breast on clinical breast examination 2 months before 07/04/2019: Right breast ultrasound 08/16/2020: Bilateral diagnostic digital mammography? 08/16/2020: Right breast ultrasound was obtained for unspecified lump in the right breast 02/18/2022: Bilateral screening digital mammograms 02/02/2023: Bilateral screening mammograms 04/02/2023: Right breast ultrasound 04/02/2023: Right breast diagnosed mammogram? 04/21/2023: Right breast diagnostic mammogram 05/05/2023: Ultrasound-guided percutaneous biopsy of the right breast mass 05/25/2023: PET/CT scan 05/27/2023: BRCA 1and2 1 and 2 urinalysis 06/08/2023: AST 26, ALT 37, T. bili 0.4 06/08/2023: Ms. Cardenas had first cycle of TCHP chemotherapy in the neoadjuvant setting. 06/26/2023: AST 52, ALT 78, T. bili 0.6 06/29/2023: AST 50, ALT 88 07/02/2023: AST 60, ALT 127, alk phos 121 07/07/2023: AST 22, ALT 52, alkaline phosphatase 115. 07/07/2023: Chemotherapy changed to weekly Taxol, Herceptin and Perjeta in view of elevated transaminases. 07/14/2023: AST 81, ALT 125, alk phos 145. 07/07/2023: Ultrasound of the abdomen 07/14/2023: Hepatitis panel negative 07/21/2023: AST 38, ALT 58, alkaline phosphatase 154. 07/21/2023: Ms. Cardenas received Taxotere, carboplatin and trastuzumab. Perjeta held again due to elevated liver enzymes. 08/11/2023: Ms. Cardenas received second cycle of Taxotere, carboplatin and trastuzumab. 09/01/2023: Ms. Cardenas received third cycle of Taxotere, carboplatin and trastuzumab. 09/22/2023: Ms. Cardenas received fourth cycle of Taxotere, carboplatin and trastuzumab chemotherapy 11/05/2023: PET/CT scan 11/06/2023: Bilateral breast MRI with and without contrast 12/03/2022: Ms. Cardenas had what appears to be right-sided modified radical mastectomy at [facility]. 03/16/2024: CT scan of the chest abdomen pelvis with IV contrast 03/20/2024: Ms. Cardenas is started on adjuvant radiation therapy to the right chest wall in [place]. 03/24/2024: Ms. Cardenas is started on adjuvant Ado-Trastuzumab Emtansine (Kadcyla) OTHER MEDICAL HISTORY/CONDITIONS: BREAST?CA,?COVID ?2016,?TUBAL?LIGATION?2016 FAMILY HISTORY: Father:?DENIES Mother:?DENIES Sibling:?DENIES Children:?DENIES Cancer History:?paternal aunt stomach living maternal aunt colon living Patient?denies?family?cancer?history. 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 CONTROL USE YEARS AGO :?5 Live?Births:?3 Age?1st?:?25 Gynecological?Note:?2?MISCARRIAGES Gynecological?Note?2:?1 SISTER, 2 DAUGHTERS, 5MATERNAL AUNTS, 6 PATERNAL AUNTS MEDICATIONS: 1. None Medications Last Reconciled by Carissa Oliveira MA on 09/22/2024 ALLERGIES: PENICILLAMINE REVIEW OF SYSTEMS: A complete 14-point review of systems was performed and is negative except as noted in interval history. PHYSICAL EXAMINATION: VITAL SIGNS: Temperature?99.2, B/P?107/73, Oxygen?Saturation?97% Weight?145?lbs (Change?since?09/08/24:?-3?lbs) PAIN: 0 - No pain ECOG Performance Status: 0 - Asymptomatic and fully active GENERAL APPEARANCE: Appears well, in no apparent distress, appropriately interactive. HEENT: Normocephalic, no temporal wasting, normal conjunctiva, no scleral icterus, normal hearing, lips without lesions, neck normal range of motion. CARDIOVASCULAR: Not assessed. PULMONARY: Normal respiratory effort, no respiratory distress or use of accessory muscles, speaking in full sentences, no tachypnea. EXTREMITIES: No pedal edema or cyanosis. SKIN: Normal skin appearance. NEUROLOGIC: Alert and oriented x4. PSHYCHIATRIC: Appropriate affect, mood normal, behavior normal, intact thought and speech. LABORATORY DATA: I have personally reviewed and interpreted each of the patient?s relevant lab tests, abnormal findings are below: Date 09/22/24 ??GLUCOSE,RANDOM?(mg/dL) 114?H ??BLOOD?UREA?NITROGEN?(mg/dL) 9 ??CREATININE?(mg/dL) 0.50?L ??SODIUM?(mmol/L) 141 ??POTASSIUM?(mmol/L) 3.8 ??CHLORIDE?(mmol/L) 105 ??CrCl?(CandG)?(ml/min) 149.59 ??AST/SGOT?(Unit/L) 186?H ??ALT/SGPT?(Unit/L) 217?H ??ALKALINE?PHOSPHATASE?(Unit/L) 406?H ??BILIRUBIN,?TOTAL?(mg/dL) 0.8 ??PROTEIN?TOTAL?(gm/dl) 7.6 ??ALBUMIN,?SERUM?(gm/dl) 4.5 ??GLOBULIN?(gm/dl) 3.1 ??ALBUMIN/GLOBULIN?RATIO 1.5 ??CALCIUM,?SERUM?(mg/dL) 9.7 ??CALCIUM?SERUM?(CORRECTED)?(mg/dL) 9.7 ASSESSMENT/PLAN: Stage IIIb (cT4d, cN2a, 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 [place]. [place] [facility] [place] patient has been getting kadcyla last dose was in 07/2024 patient have worsening transaminitis Will dose reduce and see if patient can tolerate Kadcyla Resume once LFTs are normalized MRD testing ORDERS: CBC CMP CA 15-3 RETURN TO CLINIC: 2 weeks BILLING AND COMPLIANCE: I reviewed external records from providers outside my specialty as summarized above. I spent a total of 50 minutes on this patient?s care on the day of their visit excluding time spent related to any billed procedures. This time includes time spent with the patient as well as time spent documenting in the medical record, reviewing patients records and tests, obtaining history, placing orders, communicating with other healthcare professionals, counseling the patient, family or caregiver, and/or care coordination for the diagnoses above. Electronically Signed by: {Object.Sanct_ID*[email or web address]@M}, {Object.Sanct_ID*PnP.Suffix@U} D: {Object.Sanct_Date} T: {Object.Sanct_Time} CC: PCP: Krysta Oliveira Referring: Krysta Oliveira This document was completed utilizing speech recognition software. Grammatical errors, random word insertions, pronoun errors, and incomplete sentences are an occasional consequence of this system due to software limitations, ambient noise, and hardware issues. Any formal questions or concerns about the content, text or information contained within the body of this dictation should be directly addressed to the provider for clarification.
[2024-09-29 12:05] LABS: Alanine Aminotransferase 191 U/L (10-49); Albumin, Serum 4.4 gm/dL (3.5-5.0); Albumin/Globulin Ratio 1.5 (1.2-2.2); Alkaline Phosphatase 379 U/L (46-116); Anion Gap 5 (7-16); Aspartate Amino Transferase 131 U/L (0-34); BUN/Creatinine Ratio 20 Ratio (12-20); Bilirubin,Total 0.7 mg/dL (0.3-1.2); Blood Urea Nitrogen 10 mg/dL (9-23); Calcium 9.7 mg/dL (8.3-10.6); Calcium (Corrected) 9.7 mg/dL (8.5-10.1); Carbon Dioxide 26.9 mMol/L (20.0-31.0); Chloride 108 mMol/L (98-107); Creatinine (Component) 0.5 mg/dL (0.6-1.3); Globulin 2.9 gm/dL (2.3-3.5); Glucose 135 mg/dL (74-106); Osmolality,Calculated 280 (275-295); Potassium 3.8 mMol/L (3.4-5.1); Sodium 140 mMol/L (136-145); Total Protein 7.3 gm/dL (5.7-8.2); eGFR > 60 See Note
== END 2024-09-23 23:59 | disposition home or self-care (01) ==
LOC: SCTC 10:25
PROVIDERS: PCP Registered Nurse Community Health; Referring Provider Registered Nurse Community Health; Visit Provider Internal Medicine Hematology & Oncology
DX: C50.811 Malignant neoplasm of overlapping sites of right female breast (principal); Z17.1 Estrogen receptor negative status [ER-]; Z17.22 Progesterone receptor negative status; Z17.32 Human epidermal growth factor receptor 2 negative status; Z90.11 Acquired absence of right breast and nipple; R74.01 Elevation of levels of liver transaminase levels
CPT/HCPCS: 36591; 80053; 85025; 96360; 99213; A4216; J1642; J7030; G0463

== ENCOUNTER → 2024-10-07 | Outpatient (CLI) | payer MEDICAID, SELFPAY ==
--- NOTE | 2024-10-07 08:45 | XR_ITS ---
EXAMINATION: US gall bladder ORDERING PROVIDER: Orville Juarez MD HISTORY: 44-year-old female diagnosed with breast cancer. Abnormal liver enzymes. TECHNIQUE: Multiplanar still ultrasonography of the right upper quadrant was performed using grayscale imaging, supplemented by color and spectral Doppler as needed. COMPARISON: 09/17/2024, MRI abdomen. 03/16/2024, CT chest abdomen pelvis. 06/30/2024, PET/CT.. FINDINGS: Liver: Mild diffuse increased echogenicity. No focal liver lesion identified. Gallbladder: No intraluminal lesion. No wall thickening. No pericholecystic fluid. Biliary system: No biliary ductal dilatation. Common bile duct: 0.3 cm. Pancreas: Partially evaluated. Vascular: Normal hepatopetal flow in the portal vein. IVC patent. Other: No ascites or mass. IMPRESSION: 1. No findings for acute cholecystitis. 2. No focal liver lesion. 3. Nonspecific mild diffuse increased echogenicity of the liver. On recent MRI, there was no significant signal dropout on out of phase imaging to suggest steatosis, however, there was mildly decreased T2 signal. Findings may represent developing hepatocellular disease and/or changes from chemotherapy.
== END | disposition home or self-care (01) ==
PROVIDERS: PCP Registered Nurse Community Health; Referring Provider Internal Medicine Hematology & Oncology; Visit Provider Internal Medicine Hematology & Oncology
DX: K76.89 Other specified diseases of liver (principal); M51.84 Other intervertebral disc disorders, thoracic region; C50.411 Malignant neoplasm of upper-outer quadrant of right female breast
CPT/HCPCS: 76705

== ENCOUNTER 2024-10-20 10:17 | Outpatient (RCR) | payer MEDICAID, SELFPAY ==
[2024-09-27 09:29] LABS: Basophils % (Auto) 1 % (0-2.5); Eosinophils # (Auto) 0.1 Thou/mm3 (0.0-0.5); Eosinophils % (Auto) 2 % (0-10); Hemoglobin 11.2 g/dL (12.0-16.0); Immature Granulocytes % (Auto) 0 % (0-0); Immature Granulocytes Auto 0.01 Thou/mm3 (0.00-0.00); Lymphocytes % (Auto) 29 % (10-50); Mean Corpuscular HGB Conc 32.9 g/dl (31.0-37.0); Mean Corpuscular Hemoglobin 26.5 pg (25.0-35.0); Mean Corpuscular Volume 80 fL (80-100); Monocytes # (Auto) 0.3 Thou/mm3 (0.0-0.8); Monocytes % (Auto) 8 % (0-12); Neutrophils # (Auto) 2.1 Thou/mm3 (1.8-7.7); Neutrophils % (Auto) 59 % (37-80); Nucleated Red Blood Cell % 0 /100 WBC (0); Platelet Count 177 Thou/mm3 (140-440); RDW Standard Deviation 65.8 fL (36.4-46.3); Red Blood Count 4.23 Miln/mm3 (4.00-5.20); White Blood Count 3.5 Thou/mm3 (3.6-11.0)
[2024-09-27 09:53] LABS: Alanine Aminotransferase 172 U/L (10-49); Albumin, Serum 4.3 gm/dL (3.5-5.0); Albumin/Globulin Ratio 1.5 (1.2-2.2); Alkaline Phosphatase 374 U/L (46-116); Anion Gap 8 (7-16); Aspartate Amino Transferase 124 U/L (0-34); BUN/Creatinine Ratio 38 Ratio (12-20); Bilirubin,Total 0.5 mg/dL (0.3-1.2); Blood Urea Nitrogen 15 mg/dL (9-23); Calcium 9.5 mg/dL (8.3-10.6); Calcium (Corrected) 9.5 mg/dL (8.5-10.1); Carbon Dioxide 24.3 mMol/L (20.0-31.0); Chloride 109 mMol/L (98-107); Creatinine (Component) 0.4 mg/dL (0.6-1.3); Globulin 2.8 gm/dL (2.3-3.5); Glucose 98 mg/dL (74-106); Osmolality,Calculated 282 (275-295); Potassium 3.9 mMol/L (3.4-5.1); Sodium 141 mMol/L (136-145); Total Protein 7.1 gm/dL (5.7-8.2); eGFR > 60 See Note
[2024-10-03 09:31] LABS: Basophils % (Auto) 1 % (0-2.5); Eosinophils # (Auto) 0.1 Thou/mm3 (0.0-0.5); Eosinophils % (Auto) 3 % (0-10); Hematocrit 34.5 % (36.0-46.0); Hemoglobin 11.3 g/dL (12.0-16.0); Immature Granulocytes % (Auto) 0 % (0-0); Lymphocytes # (Auto) 1.2 Thou/mm3 (1.0-4.8); Lymphocytes % (Auto) 35 % (10-50); Mean Corpuscular HGB Conc 32.8 g/dl (31.0-37.0); Mean Corpuscular Hemoglobin 26.2 pg (25.0-35.0); Mean Corpuscular Volume 80 fL (80-100); Monocytes # (Auto) 0.4 Thou/mm3 (0.0-0.8); Monocytes % (Auto) 10 % (0-12); Neutrophils # (Auto) 1.8 Thou/mm3 (1.8-7.7); Neutrophils % (Auto) 52 % (37-80); Nucleated Red Blood Cell % 0 /100 WBC (0); Platelet Count 189 Thou/mm3 (140-440); RDW Standard Deviation 65.1 fL (36.4-46.3); Red Blood Count 4.31 Miln/mm3 (4.00-5.20); White Blood Count 3.5 Thou/mm3 (3.6-11.0)
[2024-10-03 09:54] LABS: Alanine Aminotransferase 138 U/L (10-49); Albumin, Serum 4.4 gm/dL (3.5-5.0); Albumin/Globulin Ratio 1.6 (1.2-2.2); Alkaline Phosphatase 351 U/L (46-116); Anion Gap 7 (7-16); Aspartate Amino Transferase 94 U/L (0-34); BUN/Creatinine Ratio 20 Ratio (12-20); Bilirubin,Total 0.7 mg/dL (0.3-1.2); Blood Urea Nitrogen 12 mg/dL (9-23); Calcium 9.8 mg/dL (8.3-10.6); Calcium (Corrected) 9.8 mg/dL (8.5-10.1); Carbon Dioxide 25.3 mMol/L (20.0-31.0); Chloride 108 mMol/L (98-107); Creatinine (Component) 0.6 mg/dL (0.6-1.3); Globulin 2.8 gm/dL (2.3-3.5); Glucose 93 mg/dL (74-106); Osmolality,Calculated 279 (275-295); Potassium 3.7 mMol/L (3.4-5.1); Sodium 140 mMol/L (136-145); Total Protein 7.2 gm/dL (5.7-8.2); eGFR > 60 See Note
[2024-10-06 09:35] LABS: Basophils % (Auto) 1 % (0-2.5); Eosinophils # (Auto) 0.1 Thou/mm3 (0.0-0.5); Eosinophils % (Auto) 3 % (0-10); Hematocrit 33.1 % (36.0-46.0); Hemoglobin 10.8 g/dL (12.0-16.0); Immature Granulocytes % (Auto) 0 % (0-0); Lymphocytes # (Auto) 1.3 Thou/mm3 (1.0-4.8); Lymphocytes % (Auto) 36 % (10-50); Mean Corpuscular HGB Conc 32.6 g/dl (31.0-37.0); Mean Corpuscular Hemoglobin 26.7 pg (25.0-35.0); Mean Corpuscular Volume 82 fL (80-100); Monocytes # (Auto) 0.4 Thou/mm3 (0.0-0.8); Monocytes % (Auto) 11 % (0-12); Neutrophils # (Auto) 1.8 Thou/mm3 (1.8-7.7); Neutrophils % (Auto) 49 % (37-80); Nucleated Red Blood Cell % 0 /100 WBC (0); Platelet Count 174 Thou/mm3 (140-440); Red Blood Count 4.04 Miln/mm3 (4.00-5.20); White Blood Count 3.6 Thou/mm3 (3.6-11.0)
[2024-10-06 09:50] LABS: Alanine Aminotransferase 118 U/L (10-49); Albumin, Serum 4.2 gm/dL (3.5-5.0); Albumin/Globulin Ratio 1.4 (1.2-2.2); Alkaline Phosphatase 334 U/L (46-116); Anion Gap 8 (7-16); Aspartate Amino Transferase 89 U/L (0-34); BUN/Creatinine Ratio 24 Ratio (12-20); Bilirubin,Total 0.7 mg/dL (0.3-1.2); Blood Urea Nitrogen 12 mg/dL (9-23); Carbon Dioxide 25.7 mMol/L (20.0-31.0); Chloride 110 mMol/L (98-107); Creatinine (Component) 0.5 mg/dL (0.6-1.3); Globulin 2.9 gm/dL (2.3-3.5); Glucose 91 mg/dL (74-106); Osmolality,Calculated 286 (275-295); Potassium 3.9 mMol/L (3.4-5.1); Sodium 144 mMol/L (136-145); Total Protein 7.1 gm/dL (5.7-8.2); eGFR > 60 See Note
[2024-10-11 09:25] LABS: Basophils % (Auto) 0 % (0-2.5); Eosinophils # (Auto) 0.1 Thou/mm3 (0.0-0.5); Eosinophils % (Auto) 3 % (0-10); Hematocrit 34.1 % (36.0-46.0); Hemoglobin 11.4 g/dL (12.0-16.0); Immature Granulocytes % (Auto) 0 % (0-0); Lymphocytes # (Auto) 1.2 Thou/mm3 (1.0-4.8); Lymphocytes % (Auto) 34 % (10-50); Mean Corpuscular HGB Conc 33.4 g/dl (31.0-37.0); Mean Corpuscular Hemoglobin 26.6 pg (25.0-35.0); Mean Corpuscular Volume 80 fL (80-100); Monocytes # (Auto) 0.3 Thou/mm3 (0.0-0.8); Monocytes % (Auto) 9 % (0-12); Neutrophils % (Auto) 54 % (37-80); Nucleated Red Blood Cell % 0 /100 WBC (0); Platelet Count 173 Thou/mm3 (140-440); RDW Standard Deviation 63.2 fL (36.4-46.3); Red Blood Count 4.28 Miln/mm3 (4.00-5.20); White Blood Count 3.6 Thou/mm3 (3.6-11.0)
[2024-10-11 09:44] LABS: Alanine Aminotransferase 168 U/L (10-49); Albumin, Serum 4.2 gm/dL (3.5-5.0); Albumin/Globulin Ratio 1.5 (1.2-2.2); Alkaline Phosphatase 343 U/L (46-116); Anion Gap 8 (7-16); Aspartate Amino Transferase 132 U/L (0-34); BUN/Creatinine Ratio 38 Ratio (12-20); Bilirubin,Total 0.6 mg/dL (0.3-1.2); Blood Urea Nitrogen 15 mg/dL (9-23); Calcium 9.6 mg/dL (8.3-10.6); Calcium (Corrected) 9.6 mg/dL (8.5-10.1); Carbon Dioxide 25.2 mMol/L (20.0-31.0); Chloride 107 mMol/L (98-107); Creatinine (Component) 0.4 mg/dL (0.6-1.3); Globulin 2.8 gm/dL (2.3-3.5); Glucose 104 mg/dL (74-106); Osmolality,Calculated 280 (275-295); Sodium 140 mMol/L (136-145); eGFR > 60 See Note
[2024-10-13 10:46] LABS: Alanine Aminotransferase 169 U/L (10-49); Albumin, Serum 4.4 gm/dL (3.5-5.0); Albumin/Globulin Ratio 1.5 (1.2-2.2); Alkaline Phosphatase 373 U/L (46-116); Anion Gap 9 (7-16); Aspartate Amino Transferase 110 U/L (0-34); BUN/Creatinine Ratio 17 Ratio (12-20); Bilirubin,Total 1.1 mg/dL (0.3-1.2); Blood Urea Nitrogen 10 mg/dL (9-23); Calcium 9.6 mg/dL (8.3-10.6); Calcium (Corrected) 9.6 mg/dL (8.5-10.1); Carbon Dioxide 24.5 mMol/L (20.0-31.0); Chloride 106 mMol/L (98-107); Creatinine (Component) 0.6 mg/dL (0.6-1.3); Globulin 2.9 gm/dL (2.3-3.5); Glucose 122 mg/dL (74-106); Osmolality,Calculated 277 (275-295); Sodium 139 mMol/L (136-145); Total Protein 7.3 gm/dL (5.7-8.2); eGFR > 60 See Note
[2024-10-18 14:21] LABS: Basophils % (Auto) 0 % (0-2.5); Eosinophils # (Auto) 0.1 Thou/mm3 (0.0-0.5); Eosinophils % (Auto) 2 % (0-10); Hematocrit 32.6 % (36.0-46.0); Hemoglobin 10.9 g/dL (12.0-16.0); Immature Granulocytes % (Auto) 0 % (0-0); Immature Granulocytes Auto 0.01 Thou/mm3 (0.00-0.00); Lymphocytes # (Auto) 1.4 Thou/mm3 (1.0-4.8); Lymphocytes % (Auto) 27 % (10-50); Mean Corpuscular HGB Conc 33.4 g/dl (31.0-37.0); Mean Corpuscular Hemoglobin 26.8 pg (25.0-35.0); Mean Corpuscular Volume 80 fL (80-100); Monocytes # (Auto) 0.4 Thou/mm3 (0.0-0.8); Monocytes % (Auto) 8 % (0-12); Neutrophils # (Auto) 3.2 Thou/mm3 (1.8-7.7); Neutrophils % (Auto) 63 % (37-80); Nucleated Red Blood Cell % 0 /100 WBC (0); Platelet Count 180 Thou/mm3 (140-440); RDW Standard Deviation 60.8 fL (36.4-46.3); Red Blood Count 4.06 Miln/mm3 (4.00-5.20)
[2024-10-18 14:38] LABS: Alanine Aminotransferase 127 U/L (10-49); Albumin, Serum 4.5 gm/dL (3.5-5.0); Albumin/Globulin Ratio 1.7 (1.2-2.2); Alkaline Phosphatase 369 U/L (46-116); Anion Gap 10 (7-16); Aspartate Amino Transferase 83 U/L (0-34); BUN/Creatinine Ratio 28 Ratio (12-20); Bilirubin,Total 0.8 mg/dL (0.3-1.2); Blood Urea Nitrogen 14 mg/dL (9-23); Calcium 10.1 mg/dL (8.3-10.6); Calcium (Corrected) 10.1 mg/dL (8.5-10.1); Carbon Dioxide 25.4 mMol/L (20.0-31.0); Chloride 107 mMol/L (98-107); Creatinine (Component) 0.5 mg/dL (0.6-1.3); Globulin 2.7 gm/dL (2.3-3.5); Glucose 120 mg/dL (74-106); Osmolality,Calculated 284 (275-295); Potassium 3.7 mMol/L (3.4-5.1); Sodium 142 mMol/L (136-145); Total Protein 7.2 gm/dL (5.7-8.2); eGFR > 60 See Note
[2024-10-20 11:15] LABS: Alanine Aminotransferase 110 U/L (10-49); Albumin, Serum 4.3 gm/dL (3.5-5.0); Albumin/Globulin Ratio 1.5 (1.2-2.2); Alkaline Phosphatase 356 U/L (46-116); Anion Gap 9 (7-16); Aspartate Amino Transferase 72 U/L (0-34); BUN/Creatinine Ratio 28 Ratio (12-20); Bilirubin,Total 0.9 mg/dL (0.3-1.2); Blood Urea Nitrogen 17 mg/dL (9-23); Calcium 9.5 mg/dL (8.3-10.6); Calcium (Corrected) 9.5 mg/dL (8.5-10.1); Chloride 108 mMol/L (98-107); Creatinine (Component) 0.6 mg/dL (0.6-1.3); Globulin 2.9 gm/dL (2.3-3.5); Glucose 106 mg/dL (74-106); Osmolality,Calculated 282 (275-295); Potassium 3.7 mMol/L (3.4-5.1); Sodium 141 mMol/L (136-145); Total Protein 7.2 gm/dL (5.7-8.2); eGFR > 60 See Note
== END 2024-10-24 23:59 | disposition home or self-care (01) ==
LOC: SCTC 10:17
PROVIDERS: PCP Family Medicine; Referring Provider Family Medicine; Visit Provider Internal Medicine Hematology & Oncology
DX: Z51.11 Encounter for antineoplastic chemotherapy (principal); C50.811 Malignant neoplasm of overlapping sites of right female breast; C77.3 Secondary and unspecified malignant neoplasm of axilla and upper limb lymph nodes; Z17.1 Estrogen receptor negative status [ER-]; Z17.22 Progesterone receptor negative status; Z17.32 Human epidermal growth factor receptor 2 negative status; Z90.11 Acquired absence of right breast and nipple; R74.01 Elevation of levels of liver transaminase levels
CPT/HCPCS: 36591; 80053; 85025; 96360; 96413; 96415; A4216; J1100; J1642; J2405; J7030; J7050; Q5117

== ENCOUNTER 2024-11-21 10:02 | Outpatient (RCR) | payer MEDICAID, SELFPAY ==
[2024-10-25 10:03] LABS: Alanine Aminotransferase 135 U/L (10-49); Albumin, Serum 4.3 gm/dL (3.5-5.0); Albumin/Globulin Ratio 1.7 (1.2-2.2); Alkaline Phosphatase 359 U/L (46-116); Anion Gap 6 (7-16); Aspartate Amino Transferase 111 U/L (0-34); BUN/Creatinine Ratio 28 Ratio (12-20); Bilirubin,Total 0.7 mg/dL (0.3-1.2); Blood Urea Nitrogen 14 mg/dL (9-23); Calcium 9.4 mg/dL (8.3-10.6); Calcium (Corrected) 9.4 mg/dL (8.5-10.1); Carbon Dioxide 25.6 mMol/L (20.0-31.0); Chloride 109 mMol/L (98-107); Creatinine (Component) 0.5 mg/dL (0.6-1.3); Globulin 2.6 gm/dL (2.3-3.5); Glucose 103 mg/dL (74-106); Osmolality,Calculated 281 (275-295); Sodium 141 mMol/L (136-145); Total Protein 6.9 gm/dL (5.7-8.2); eGFR > 60 See Note
[2024-10-27 10:43] LABS: Basophils % (Auto) 0 % (0-2.5); Eosinophils # (Auto) 0.1 Thou/mm3 (0.0-0.5); Eosinophils % (Auto) 2 % (0-10); Hematocrit 32.3 % (36.0-46.0); Hemoglobin 10.9 g/dL (12.0-16.0); Immature Granulocytes % (Auto) 1 % (0-0); Immature Granulocytes Auto 0.02 Thou/mm3 (0.00-0.00); Lymphocytes # (Auto) 1.2 Thou/mm3 (1.0-4.8); Lymphocytes % (Auto) 30 % (10-50); Mean Corpuscular HGB Conc 33.7 g/dl (31.0-37.0); Mean Corpuscular Hemoglobin 27.5 pg (25.0-35.0); Mean Corpuscular Volume 81 fL (80-100); Monocytes # (Auto) 0.3 Thou/mm3 (0.0-0.8); Monocytes % (Auto) 7 % (0-12); Neutrophils # (Auto) 2.3 Thou/mm3 (1.8-7.7); Neutrophils % (Auto) 61 % (37-80); Nucleated Red Blood Cell % 0 /100 WBC (0); Platelet Count 175 Thou/mm3 (140-440); RDW Standard Deviation 57.8 fL (36.4-46.3); Red Blood Count 3.97 Miln/mm3 (4.00-5.20); White Blood Count 3.8 Thou/mm3 (3.6-11.0)
[2024-10-27 11:01] LABS: Alanine Aminotransferase 163 U/L (10-49); Albumin, Serum 4.3 gm/dL (3.5-5.0); Albumin/Globulin Ratio 1.7 (1.2-2.2); Alkaline Phosphatase 364 U/L (46-116); Anion Gap 8 (7-16); Aspartate Amino Transferase 113 U/L (0-34); BUN/Creatinine Ratio 43 Ratio (12-20); Bilirubin,Total 0.7 mg/dL (0.3-1.2); Blood Urea Nitrogen 17 mg/dL (9-23); Calcium 9.3 mg/dL (8.3-10.6); Calcium (Corrected) 9.3 mg/dL (8.5-10.1); Carbon Dioxide 26.2 mMol/L (20.0-31.0); Chloride 105 mMol/L (98-107); Creatinine (Component) 0.4 mg/dL (0.6-1.3); Globulin 2.6 gm/dL (2.3-3.5); Glucose 100 mg/dL (74-106); Osmolality,Calculated 279 (275-295); Potassium 3.9 mMol/L (3.4-5.1); Sodium 139 mMol/L (136-145); Total Protein 6.9 gm/dL (5.7-8.2); eGFR > 60 See Note
[2024-10-31 11:31] LABS: Basophils % (Auto) 0 % (0-2.5); Eosinophils # (Auto) 0.1 Thou/mm3 (0.0-0.5); Eosinophils % (Auto) 2 % (0-10); Hematocrit 34.2 % (36.0-46.0); Hemoglobin 11.6 g/dL (12.0-16.0); Immature Granulocytes % (Auto) 0 % (0-0); Immature Granulocytes Auto 0.01 Thou/mm3 (0.00-0.00); Lymphocytes # (Auto) 1.3 Thou/mm3 (1.0-4.8); Lymphocytes % (Auto) 28 % (10-50); Mean Corpuscular HGB Conc 33.9 g/dl (31.0-37.0); Mean Corpuscular Hemoglobin 28.1 pg (25.0-35.0); Mean Corpuscular Volume 83 fL (80-100); Monocytes # (Auto) 0.3 Thou/mm3 (0.0-0.8); Monocytes % (Auto) 7 % (0-12); Neutrophils # (Auto) 2.9 Thou/mm3 (1.8-7.7); Neutrophils % (Auto) 62 % (37-80); Nucleated Red Blood Cell % 0 /100 WBC (0); Platelet Count 194 Thou/mm3 (140-440); RDW Standard Deviation 57.2 fL (36.4-46.3); Red Blood Count 4.13 Miln/mm3 (4.00-5.20); White Blood Count 4.7 Thou/mm3 (3.6-11.0)
[2024-10-31 11:43] LABS: Alanine Aminotransferase 201 U/L (10-49); Albumin, Serum 4.6 gm/dL (3.5-5.0); Albumin/Globulin Ratio 1.6 (1.2-2.2); Alkaline Phosphatase 411 U/L (46-116); Anion Gap 10 (7-16); Aspartate Amino Transferase 129 U/L (0-34); BUN/Creatinine Ratio 36 Ratio (12-20); Bilirubin,Total 0.9 mg/dL (0.3-1.2); Blood Urea Nitrogen 18 mg/dL (9-23); Calcium 10.1 mg/dL (8.3-10.6); Calcium (Corrected) 10.1 mg/dL (8.5-10.1); Carbon Dioxide 24.3 mMol/L (20.0-31.0); Chloride 106 mMol/L (98-107); Creatinine (Component) 0.5 mg/dL (0.6-1.3); Globulin 2.9 gm/dL (2.3-3.5); Glucose 97 mg/dL (74-106); Osmolality,Calculated 281 (275-295); Potassium 3.9 mMol/L (3.4-5.1); Sodium 140 mMol/L (136-145); Total Protein 7.5 gm/dL (5.7-8.2); eGFR > 60 See Note
--- NOTE | 2024-11-01 23:18 | CTCFLWUP_ITS ---
Patient: FEMI BUNCH : 1980 Page 10 of 12 FOLLOW UP NOTE DATE OF SERVICE: 11/01/2024 NAME: FEMI BUNCH ACCOUNT: [id number] : 1980 AGE: 44 INTERVAL HISTORY: Patient last received Herceptin only secondary to transaminitis. Since infusion patient has been doing well and have no clinical symptoms. She denies any abdominal pain any change in the color of stools. She has no change in the appetite or weight loss ONCOLOGY HISTORY:?[facility] Hx? 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)., ER negative, MI negative, HER2/pranay overexpressed s/p biopsy of right breast mass as well as right axillary lesions on 05/05/2023 STAGE/TNM: Stage 3 TREATMENT HISTORY: Care?Plan Start?Date Cycle Day Intent DOCETAXEL,?CARBO,?HERCEPTIN,?PERJETA,?KADCYLA 06/08/2023 1 21 Curative?(primary) Taxol?80mg*2?wkly,?Herceptin,?Perjeta 07/12/2023 1 21 Curative?(primary) Taxotere,?Carboplatin,?Trastuzumab?1 07/21/2023 1 21 Curative?(primary) Zoledronic?Acid?4?mg?adjuvant 01/06/2024 1 180 Curative?(adjuvant) DOXOrubicin?60,?Cyclophos?600 01/21/2024 1 14 Curative?(adjuvant) KADCYLA?post-neoadjuvant 03/24/2024 1 21 Curative?(adjuvant) Trastuzumab?6?mg/kg? To?Finish?the?Year 10/11/2024 1 21 Curative?(adjuvant) HISTORY OF PRESENT ILLNESS: Femi Khan is a 44-year-old SPA speaking female without any significant past medical history has the following oncology history. 07/04/2019: Ms. Khan had right breast diagnostic mammogram for right breast pain of 1 year duration along with palpable masses in the right breast on clinical breast examination 2 months before 07/04/2019: Right breast ultrasound 08/16/2020: Bilateral diagnostic digital mammography? 08/16/2020: Right breast ultrasound was obtained for unspecified lump in the right breast 02/18/2022: Bilateral screening digital mammograms 02/02/2023: Bilateral screening mammograms 04/02/2023: Right breast ultrasound 04/02/2023: Right breast diagnosed mammogram? 04/21/2023: Right breast diagnostic mammogram 05/05/2023: Ultrasound-guided percutaneous biopsy of the right breast mass 05/25/2023: PET/CT scan 05/27/2023: BRCA 1and2 1 and 2 urinalysis 06/08/2023: AST 26, ALT 37, T. bili 0.4 06/08/2023: Ms. Bunch had first cycle of TCHP chemotherapy in the neoadjuvant setting. 06/26/2023: AST 52, ALT 78, T. bili 0.6 06/29/2023: AST 50, ALT 88 07/02/2023: AST 60, ALT 127, alk phos 121 07/07/2023: AST 22, ALT 52, alkaline phosphatase 115. 07/07/2023: Chemotherapy changed to weekly Taxol, Herceptin and Perjeta in view of elevated transaminases. 07/14/2023: AST 81, ALT 125, alk phos 145. 07/07/2023: Ultrasound of the abdomen 07/14/2023: Hepatitis panel negative 07/21/2023: AST 38, ALT 58, alkaline phosphatase 154. 07/21/2023: Ms. Bunch received Taxotere, carboplatin and trastuzumab. Perjeta held again due to elevated liver enzymes. 08/11/2023: Ms. Bunch received second cycle of Taxotere, carboplatin and trastuzumab. 09/01/2023: Ms. Bunch received third cycle of Taxotere, carboplatin and trastuzumab. 09/22/2023: Ms. Bunch received fourth cycle of Taxotere, carboplatin and trastuzumab chemotherapy 11/05/2023: PET/CT scan 11/06/2023: Bilateral breast MRI with and without contrast 12/03/2022: Ms. Bunch had what appears to be right-sided modified radical mastectomy at [facility]. 03/16/2024: CT scan of the chest abdomen pelvis with IV contrast 03/20/2024: Ms. Bunch is started on adjuvant radiation therapy to the right chest wall in [place]. 03/24/2024: Ms. Bunch is started on adjuvant Ado-Trastuzumab Emtansine (Kadcyla) OTHER MEDICAL HISTORY/CONDITIONS: BREAST?CA,?COVID ?2016,?TUBAL?LIGATION?2017 ?Clone Other Med Hx? FAMILY HISTORY: Father:?DENIES Mother:?DENIES Sibling:?DENIES Children:?DENIES Cancer History:?paternal aunt stomach living maternal aunt colon living Patient?denies?family?cancer?history. ?Clone Family Hx? SOCIAL HISTORY: Occupational?History:?[employer] WORKER Education?Level:?Completed High School Marital?Status:? 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 CONTROL USE YEARS AGO :?5 Live?Births:?3 Age?1st?:?25 Gynecological?Note:?2?MISCARRIAGES Gynecological?Note?2:?1 SISTER, 2 DAUGHTERS, 5MATERNAL AUNTS, 6 PATERNAL AUNTS ?Clone LABOR COMMISSIONER Hx? MEDICATIONS: 1. magnesium - 500 mg 1 tab Every day before sleep?[place] Meds? Medications Last Reconciled by Nicky Hammer MA on 11/01/2024 ALLERGIES: PENICILLAMINE REVIEW OF SYSTEMS: A complete 14-point review of systems was performed and is negative except as noted in interval history. PHYSICAL EXAMINATION:?[facility] PE? VITAL SIGNS: Temperature?99.2, B/P?102/70, Oxygen?Saturation?99% Weight?146?lbs (Change?since?10/31/24:?0.4?lbs) PAIN: 0 - No pain GENERAL APPEARANCE: Appears well, in no apparent distress, appropriately interactive. HEENT: Normocephalic, no temporal wasting, normal conjunctiva, no scleral icterus, normal hearing, lips without lesions, neck normal range of motion. CARDIOVASCULAR: Not assessed. PULMONARY: Normal respiratory effort, no respiratory distress or use of accessory muscles, speaking in full sentences, no tachypnea. EXTREMITIES: No pedal edema or cyanosis. SKIN: Normal skin appearance. NEUROLOGIC: Alert and oriented x4. PSHYCHIATRIC: Appropriate affect, mood normal, behavior normal, intact thought and speech. LABORATORY DATA: I have personally reviewed and interpreted each of the patient?s relevant lab tests, abnormal findings are below: Date 10/27/24 10/31/24 ??WHITE?BLOOD?COUNT?(Thou/mm3) 3.8 4.7 ??RED?BLOOD?COUNT?(Miln/mm3) 3.97?L 4.13 ??HEMOGLOBIN?(gm/dl) 10.9?L 11.6?L ??HEMATOCRIT?(%) 32.3?L 34.2?L ??PLATELET?COUNT?(Thou/mm3) 175 194 ??NEUTROPHILS?%,?AUTO?(%) 61 62 ??LYMPH?%,?AUTO?(%) 30 28 ??NEUTROPHILS,?AUTO?(Thou/mm3) 2.3 2.9 ??GLUCOSE,RANDOM?(mg/dL) 100 97 ??BLOOD?UREA?NITROGEN?(mg/dL) 17 18 ??CREATININE?(mg/dL) 0.40?L 0.50?L ??SODIUM?(mmol/L) 139 140 ??POTASSIUM?(mmol/L) 3.9 3.9 ??CHLORIDE?(mmol/L) 105 106 ??CrCl?(CandG)?(ml/min) 191.41 151.26 ??AST/SGOT?(Unit/L) 113?H 129?H ??ALT/SGPT?(Unit/L) 163?H 201?H ??ALKALINE?PHOSPHATASE?(Unit/L) 364?H 411?H ??BILIRUBIN,?TOTAL?(mg/dL) 0.7 0.9 ??PROTEIN?TOTAL?(gm/dl) 6.9 7.5 ??ALBUMIN,?SERUM?(gm/dl) 4.3 4.6 ??GLOBULIN?(gm/dl) 2.6 2.9 ??ALBUMIN/GLOBULIN?RATIO 1.7 1.6 ??CALCIUM,?SERUM?(mg/dL) 9.3 10.1 ??CALCIUM?SERUM?(CORRECTED)?(mg/dL) 9.3 10.1 ASSESSMENT/PLAN:?Eleazar Juarez Assessment/Plan? 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 FISH was negative. At [facility] [place] patient was told to be triple negative patient has been getting kadcyla last dose was in 07/2024 patient have worsening transaminitis Kadcyla was stopped and Herceptin was started MRI liver was negative Matera testing for MRD negative Patient still have persistent transaminitis Defer chemo for 2 weeks with Herceptin Will do ultrasound of the liver Repeat labs in 2 weeks Once patient has complete normalization of her LFTs then only will treat with Herceptin ORDERS: Order # Description [id number] Infusion 1 Hour [id number] Comprehensive Metabolic Panel - 12 [id number] CBC with Auto Diff [id number] Comprehensive Metabolic Panel - 12 + CBC with Auto Diff [id number] Follow Up Appointment [id number] CBC + Comprehensive Metabolic Panel [id number] Lab Appointment [id number] CBC + Comprehensive Metabolic Panel [id number] Lab Appointment [id number] Follow Up Appointment [id number] Infusion 1 Hour [id number] CBC + Comprehensive Metabolic Panel [id number] Lab Appointment [id number] CBC + Comprehensive Metabolic Panel [id number] Lab Appointment [id number] Follow Up Appointment [id number] Follow Up Appointment [id number] Infusion 1 Hour [id number] Infusion 1 Hour [id number] Cardiac ECHO [id number] CBC + Comprehensive Metabolic Panel [id number] Lab Appointment [id number] CBC + Comprehensive Metabolic Panel [id number] Lab Appointment [id number] Follow Up Appointment [id number] Follow Up Appointment [id number] Cardiac ECHO [id number] Infusion 1 Hour [id number] CBC + Comprehensive Metabolic Panel [id number] Lab Appointment [id number] CBC + Comprehensive Metabolic Panel [id number] Lab Appointment [id number] Follow Up Appointment [id number] Follow Up Appointment [id number] CBC + Comprehensive Metabolic Panel [id number] Lab Appointment [id number] Cardiac ECHO [id number] Infusion 1 Hour [id number] Follow Up Appointment [id number] CBC + Comprehensive Metabolic Panel [id number] Lab Appointment [id number] Follow Up Appointment [id number] CBC + Comprehensive Metabolic Panel [id number] Lab Appointment [id number] Infusion 1 Hour [id number] Follow Up Appointment [id number] CBC + Comprehensive Metabolic Panel [id number] Lab Appointment [id number] Follow Up Appointment [id number] Infusion 1 Hour [id number] CBC + Comprehensive Metabolic Panel [id number] Lab Appointment [id number] Follow Up Appointment [id number] Infusion 1 Hour [id number] CBC + Comprehensive Metabolic Panel [id number] Lab Appointment [id number] Follow Up Appointment [id number] Infusion 1 Hour [id number] CBC + Comprehensive Metabolic Panel [id number] Lab Appointment [id number] Follow Up Appointment [id number] Cardiac ECHO [id number] Infusion 1 Hour [id number] CBC + Comprehensive Metabolic Panel [id number] Lab Appointment [id number] Follow Up Appointment [id number] Infusion 1 Hour [id number] CBC + Comprehensive Metabolic Panel [id number] Lab Appointment [id number] Follow Up Appointment [id number] Infusion 1 Hour [id number] Infusion 1 Hour [id number] CBC + Comprehensive Metabolic Panel [id number] Lab Appointment [id number] Follow Up Appointment [id number] Infusion 1 Hour [id number] Infusion 1 Hour RETURN TO CLINIC: 3 weeks BILLING AND COMPLIANCE: I reviewed external records from providers outside my specialty as summarized above. I spent a total of 50 minutes on this patient?s care on the day of their visit excluding time spent related to any billed procedures. This time includes time spent with the patient as well as time spent documenting in the medical record, reviewing patients records and tests, obtaining history, placing orders, communicating with other healthcare professionals, counseling the patient, family or caregiver, and/or care coordination for the diagnoses above. Electronically Signed by: Orville Juarez MD T: 11:16 PM CC: PCP: Orville Juarez Referring: Orville Juarez This document was completed utilizing speech recognition software. Grammatical errors, random word insertions, pronoun errors, and incomplete sentences are an occasional consequence of this system due to software limitations, ambient noise, and hardware issues. Any formal questions or concerns about the content, text or information contained within the body of this dictation should be directly addressed to the provider for clarification.
[2024-11-15 11:18] LABS: Basophils % (Auto) 0 % (0-2.5); Eosinophils # (Auto) 0.1 Thou/mm3 (0.0-0.5); Eosinophils % (Auto) 2 % (0-10); Hemoglobin 11.6 g/dL (12.0-16.0); Immature Granulocytes % (Auto) 0 % (0-0); Immature Granulocytes Auto 0.01 Thou/mm3 (0.00-0.00); Lymphocytes # (Auto) 1.2 Thou/mm3 (1.0-4.8); Lymphocytes % (Auto) 31 % (10-50); Mean Corpuscular HGB Conc 34.1 g/dl (31.0-37.0); Mean Corpuscular Hemoglobin 28.3 pg (25.0-35.0); Mean Corpuscular Volume 83 fL (80-100); Monocytes # (Auto) 0.3 Thou/mm3 (0.0-0.8); Monocytes % (Auto) 8 % (0-12); Neutrophils # (Auto) 2.3 Thou/mm3 (1.8-7.7); Neutrophils % (Auto) 58 % (37-80); Nucleated Red Blood Cell % 0 /100 WBC (0); Platelet Count 165 Thou/mm3 (140-440); RDW Standard Deviation 54.1 fL (36.4-46.3); White Blood Count 3.9 Thou/mm3 (3.6-11.0)
[2024-11-15 11:51] LABS: Alanine Aminotransferase 205 U/L (10-49); Albumin, Serum 4.5 gm/dL (3.5-5.0); Albumin/Globulin Ratio 1.7 (1.2-2.2); Alkaline Phosphatase 378 U/L (46-116); Anion Gap 6 (7-16); Aspartate Amino Transferase 121 U/L (0-34); BUN/Creatinine Ratio 30 Ratio (12-20); Bilirubin,Total 0.9 mg/dL (0.3-1.2); Blood Urea Nitrogen 15 mg/dL (9-23); Calcium 9.6 mg/dL (8.3-10.6); Calcium (Corrected) 9.6 mg/dL (8.5-10.1); Carbon Dioxide 25.6 mMol/L (20.0-31.0); Chloride 109 mMol/L (98-107); Creatinine (Component) 0.5 mg/dL (0.6-1.3); Globulin 2.6 gm/dL (2.3-3.5); Glucose 140 mg/dL (74-106); Osmolality,Calculated 284 (275-295); Potassium 3.7 mMol/L (3.4-5.1); Sodium 141 mMol/L (136-145); Total Protein 7.1 gm/dL (5.7-8.2); eGFR > 60 See Note
[2024-11-21 12:04] LABS: Basophils % (Auto) 1 % (0-2.5); Eosinophils # (Auto) 0.1 Thou/mm3 (0.0-0.5); Eosinophils % (Auto) 2 % (0-10); Hematocrit 32.8 % (36.0-46.0); Immature Granulocytes % (Auto) 0 % (0-0); Immature Granulocytes Auto 0.01 Thou/mm3 (0.00-0.00); Lymphocytes # (Auto) 1.3 Thou/mm3 (1.0-4.8); Lymphocytes % (Auto) 34 % (10-50); Mean Corpuscular HGB Conc 33.5 g/dl (31.0-37.0); Mean Corpuscular Hemoglobin 28.5 pg (25.0-35.0); Mean Corpuscular Volume 85 fL (80-100); Monocytes # (Auto) 0.3 Thou/mm3 (0.0-0.8); Monocytes % (Auto) 7 % (0-12); Neutrophils # (Auto) 2.2 Thou/mm3 (1.8-7.7); Neutrophils % (Auto) 57 % (37-80); Nucleated Red Blood Cell % 0 /100 WBC (0); Platelet Count 159 Thou/mm3 (140-440); RDW Standard Deviation 55.1 fL (36.4-46.3); Red Blood Count 3.86 Miln/mm3 (4.00-5.20); White Blood Count 3.9 Thou/mm3 (3.6-11.0)
[2024-11-21 12:09] LABS: Alanine Aminotransferase 153 U/L (10-49); Albumin, Serum 4.5 gm/dL (3.5-5.0); Albumin/Globulin Ratio 1.7 (1.2-2.2); Alkaline Phosphatase 362 U/L (46-116); Anion Gap 8 (7-16); Aspartate Amino Transferase 100 U/L (0-34); BUN/Creatinine Ratio 26 Ratio (12-20); Bilirubin,Total 0.9 mg/dL (0.3-1.2); Blood Urea Nitrogen 13 mg/dL (9-23); Calcium 9.3 mg/dL (8.3-10.6); Calcium (Corrected) 9.3 mg/dL (8.5-10.1); Carbon Dioxide 24.7 mMol/L (20.0-31.0); Chloride 105 mMol/L (98-107); Creatinine (Component) 0.5 mg/dL (0.6-1.3); Globulin 2.6 gm/dL (2.3-3.5); Glucose 140 mg/dL (74-106); Osmolality,Calculated 277 (275-295); Potassium 3.8 mMol/L (3.4-5.1); Sodium 138 mMol/L (136-145); Total Protein 7.1 gm/dL (5.7-8.2); eGFR > 60 See Note
== END 2024-11-23 23:59 | disposition home or self-care (01) ==
LOC: SCTC 10:02
PROVIDERS: PCP Registered Nurse Community Health; Referring Provider Internal Medicine Hematology & Oncology; Visit Provider Internal Medicine Hematology & Oncology
DX: Z51.11 Encounter for antineoplastic chemotherapy (principal); C50.811 Malignant neoplasm of overlapping sites of right female breast; Z17.421 Hormone receptor negative with human epidermal growth factor receptor 2 negative status; R74.01 Elevation of levels of liver transaminase levels
CPT/HCPCS: 36591; 80053; 85025; 96360; 96413; A4216; J1642; J7030; J7050; Q3014; Q5117

== ENCOUNTER → 2024-12-05 | Outpatient (CLI) | payer MEDICAID, SELFPAY ==
--- NOTE | 2024-12-05 16:00 | XR_ITS ---
Examination: Abdomen sonogram, Limited Date and time of exam: December 05, 2024 1612 hours Comparison October 07, 2024 INDICATIONS: Diagnosis malignant neoplasm upper outer quadrant right female breast, elevated liver function tests on laboratory examination December 02, 2024 Technique: Real-time rhodes scale transabdominal sonographic images of the upper abdomen obtained. Findings: Normal gallbladder Normal common bile duct 0.2 cm Pancreatic head 2.7 cm Liver 13.3 cm fatty infiltration no focal liver lesions Normal hepatopedal portal venous flow Patent IVC IMPRESSION: Normal gallbladder Fatty liver, no focal liver lesions
== END | disposition home or self-care (01) ==
LOC: CDIM 15:40
PROVIDERS: PCP Registered Nurse Community Health; Referring Provider Internal Medicine Hematology & Oncology; Visit Provider Internal Medicine Hematology & Oncology
DX: K76.0 Fatty (change of) liver, not elsewhere classified (principal); C50.411 Malignant neoplasm of upper-outer quadrant of right female breast
CPT/HCPCS: 76705

== ENCOUNTER → 2024-12-15 | Outpatient (CLI) | payer MEDICAID, SELFPAY ==
--- NOTE | 2024-12-15 09:45 | XR_ITS ---
Examination: Diagnostic digital mammography, unilateral, left Computer aided detection 3-D breast Tomosynthesis, unilateral Date and time of exam: December 15, 2024 0918 hours Compared to mammograms dating to August 16, 2020 INDICATIONS: Left breast pain beginning 3 months ago personal history right breast cancer Technique: Nonmagnified MLO, CC views of the left breast have been obtained, reconstructed from 3-D Tomosynthesis images. R2 computer aided detection program utilized for evaluation of suspicious masses and/or abnormal calcifications. 3-D Tomosynthesis images obtained. Findings: The breast is heterogeneously dense, which may obscure small masses 8mm nodule upper outer left breast Impression: BI-RADS category 0: Incomplete: Need additional imaging evaluation 8 mm nodule upper outer left breast, recommend follow-up spot tomographic views of this nodule as well as left breast sonography to complete the workup
== END | disposition home or self-care (01) ==
PROVIDERS: PCP Registered Nurse Community Health
DX: N63.21 Unspecified lump in the left breast, upper outer quadrant (principal); C50.811 Malignant neoplasm of overlapping sites of right female breast
CPT/HCPCS: 77061; 77065; G0279

== ENCOUNTER 2024-12-21 11:01 | Outpatient (RCR) | payer MEDICAID, SELFPAY ==
[2024-12-02 09:16] LABS: Basophils % (Auto) 0 % (0-2.5); Eosinophils # (Auto) 0.1 Thou/mm3 (0.0-0.5); Eosinophils % (Auto) 2 % (0-10); Hematocrit 30.8 % (36.0-46.0); Hemoglobin 10.8 g/dL (12.0-16.0); Immature Granulocytes % (Auto) 0 % (0-0); Lymphocytes # (Auto) 1.1 Thou/mm3 (1.0-4.8); Lymphocytes % (Auto) 38 % (10-50); Mean Corpuscular HGB Conc 35.1 g/dl (31.0-37.0); Mean Corpuscular Hemoglobin 29.1 pg (25.0-35.0); Mean Corpuscular Volume 83 fL (80-100); Monocytes # (Auto) 0.2 Thou/mm3 (0.0-0.8); Monocytes % (Auto) 8 % (0-12); Neutrophils # (Auto) 1.5 Thou/mm3 (1.8-7.7); Neutrophils % (Auto) 52 % (37-80); Nucleated Red Blood Cell % 0 /100 WBC (0); Platelet Count 163 Thou/mm3 (140-440); Red Blood Count 3.71 Miln/mm3 (4.00-5.20)
[2024-12-02 09:35] LABS: Alanine Aminotransferase 90 U/L (10-49); Albumin, Serum 4.2 gm/dL (3.5-5.0); Albumin/Globulin Ratio 1.7 (1.2-2.2); Alkaline Phosphatase 326 U/L (46-116); Anion Gap 6 (7-16); Aspartate Amino Transferase 67 U/L (0-34); BUN/Creatinine Ratio 26 Ratio (12-20); Bilirubin,Total 0.7 mg/dL (0.3-1.2); Blood Urea Nitrogen 13 mg/dL (9-23); Calcium 8.6 mg/dL (8.3-10.6); Calcium (Corrected) 8.6 mg/dL (8.5-10.1); Carbon Dioxide 25.2 mMol/L (20.0-31.0); Chloride 111 mMol/L (98-107); Creatinine (Component) 0.5 mg/dL (0.6-1.3); Globulin 2.5 gm/dL (2.3-3.5); Glucose 94 mg/dL (74-106); Osmolality,Calculated 283 (275-295); Sodium 142 mMol/L (136-145); Total Protein 6.7 gm/dL (5.7-8.2); eGFR > 60 See Note
[2024-12-02 09:44] LABS: White Blood Count 2.9 Thou/mm3 (3.6-11.0)
[2024-12-07 08:24] LABS: Basophils % (Auto) 1 % (0-2.5); Eosinophils # (Auto) 0.1 Thou/mm3 (0.0-0.5); Eosinophils % (Auto) 2 % (0-10); Hematocrit 34.6 % (36.0-46.0); Hemoglobin 11.9 g/dL (12.0-16.0); Immature Granulocytes % (Auto) 0 % (0-0); Immature Granulocytes Auto 0.01 Thou/mm3 (0.00-0.00); Lymphocytes # (Auto) 1.4 Thou/mm3 (1.0-4.8); Lymphocytes % (Auto) 33 % (10-50); Mean Corpuscular HGB Conc 34.4 g/dl (31.0-37.0); Mean Corpuscular Hemoglobin 28.8 pg (25.0-35.0); Mean Corpuscular Volume 84 fL (80-100); Monocytes # (Auto) 0.3 Thou/mm3 (0.0-0.8); Monocytes % (Auto) 7 % (0-12); Neutrophils # (Auto) 2.3 Thou/mm3 (1.8-7.7); Neutrophils % (Auto) 57 % (37-80); Nucleated Red Blood Cell % 0 /100 WBC (0); Platelet Count 208 Thou/mm3 (140-440); RDW Standard Deviation 49.9 fL (36.4-46.3); Red Blood Count 4.13 Miln/mm3 (4.00-5.20); White Blood Count 4.1 Thou/mm3 (3.6-11.0)
[2024-12-07 08:38] LABS: Alanine Aminotransferase 95 U/L (10-49); Albumin, Serum 4.5 gm/dL (3.5-5.0); Albumin/Globulin Ratio 1.7 (1.2-2.2); Alkaline Phosphatase 322 U/L (46-116); Anion Gap 10 (7-16); Aspartate Amino Transferase 75 U/L (0-34); BUN/Creatinine Ratio 34 Ratio (12-20); Bilirubin,Total 0.6 mg/dL (0.3-1.2); Blood Urea Nitrogen 17 mg/dL (9-23); Calcium 8.9 mg/dL (8.3-10.6); Calcium (Corrected) 8.9 mg/dL (8.5-10.1); Carbon Dioxide 25.1 mMol/L (20.0-31.0); Chloride 106 mMol/L (98-107); Creatinine (Component) 0.5 mg/dL (0.6-1.3); Globulin 2.6 gm/dL (2.3-3.5); Glucose 106 mg/dL (74-106); Osmolality,Calculated 282 (275-295); Potassium 4.1 mMol/L (3.4-5.1); Sodium 141 mMol/L (136-145); Total Protein 7.1 gm/dL (5.7-8.2); eGFR > 60 See Note
[2024-12-12 15:46] LABS: Basophils % (Auto) 0 % (0-2.5); Eosinophils # (Auto) 0.1 Thou/mm3 (0.0-0.5); Eosinophils % (Auto) 1 % (0-10); Hematocrit 33.4 % (36.0-46.0); Hemoglobin 11.6 g/dL (12.0-16.0); Immature Granulocytes % (Auto) 0 % (0-0); Immature Granulocytes Auto 0.01 Thou/mm3 (0.00-0.00); Lymphocytes # (Auto) 1.3 Thou/mm3 (1.0-4.8); Lymphocytes % (Auto) 25 % (10-50); Mean Corpuscular HGB Conc 34.7 g/dl (31.0-37.0); Mean Corpuscular Hemoglobin 28.7 pg (25.0-35.0); Mean Corpuscular Volume 83 fL (80-100); Monocytes # (Auto) 0.4 Thou/mm3 (0.0-0.8); Monocytes % (Auto) 7 % (0-12); Neutrophils # (Auto) 3.4 Thou/mm3 (1.8-7.7); Neutrophils % (Auto) 66 % (37-80); Nucleated Red Blood Cell % 0 /100 WBC (0); Platelet Count 193 Thou/mm3 (140-440); RDW Standard Deviation 49.1 fL (36.4-46.3); Red Blood Count 4.04 Miln/mm3 (4.00-5.20); White Blood Count 5.1 Thou/mm3 (3.6-11.0)
[2024-12-12 16:06] LABS: Alanine Aminotransferase 190 U/L (10-49); Albumin, Serum 4.6 gm/dL (3.5-5.0); Albumin/Globulin Ratio 1.7 (1.2-2.2); Alkaline Phosphatase 358 U/L (46-116); Anion Gap 10 (7-16); Aspartate Amino Transferase 115 U/L (0-34); BUN/Creatinine Ratio 22 Ratio (12-20); Bilirubin,Total 0.8 mg/dL (0.3-1.2); Blood Urea Nitrogen 13 mg/dL (9-23); Calcium 9.4 mg/dL (8.3-10.6); Calcium (Corrected) 9.4 mg/dL (8.5-10.1); Carbon Dioxide 27.8 mMol/L (20.0-31.0); Chloride 105 mMol/L (98-107); Creatinine (Component) 0.6 mg/dL (0.6-1.3); Globulin 2.7 gm/dL (2.3-3.5); Glucose 140 mg/dL (74-106); Osmolality,Calculated 287 (275-295); Potassium 3.7 mMol/L (3.4-5.1); Sodium 143 mMol/L (136-145); Total Protein 7.3 gm/dL (5.7-8.2); eGFR > 60 See Note
--- NOTE | 2024-12-20 12:13 | CTCFLWUP_ITS ---
Patient: FEMI BUNCH : 1980 Page 10 of 13 FOLLOW UP NOTE DATE OF SERVICE: 12/13/2024 NAME: FEMI BUNCH ACCOUNT: [id number] : 1980 AGE: 44 INTERVAL HISTORY: Chief Complaint Follow-up for ongoing cancer treatment, elevated liver enzymes History of Present Illness Femi Bunch is a patient with a history of cancer undergoing treatment with Herceptin. Her depression is reported to be very good. She is currently receiving Herceptin treatments, which started in March of the previous year, with a goal of 12 total treatments. To date, she has completed 7 Kadcyla treatments and 3 Herceptin treatments. The plan is to continue the treatments through January and February. The patient's liver enzymes are noted to be elevated, with levels higher than her previous visit. While there is no cancer or cyst in the liver, inflammation is present. A referral to a liver specialist has been sent, but an appointment has not yet been scheduled. The patient is also scheduled for a mammogram of the left breast. Bharti is not taking any [id number] medications, supplements, or other medications. She has been approved for physical therapy from September to March. There have been some authorization issues noted, with referrals not being communicated to the patient effectively. Medications and Supplements - Herceptin - Started in March last year - Received last week on Thursday - 3 treatments completed so far - Part of a planned 12 total treatments - Kadcyla - 7 treatments completed Review of Systems Psychiatric: Negative for depression. ONCOLOGY HISTORY:?[facility] Hx? 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, HER2/pranay overexpressed s/p biopsy of right breast mass as well as right axillary lesions on 05/05/2023 STAGE/TNM: Stage 3 TREATMENT HISTORY: Care?Plan Start?Date Cycle Day Intent DOCETAXEL,?CARBO,?HERCEPTIN,?PERJETA,?KADCYLA 06/08/2023 1 21 Curative?(primary) Taxol?80mg*2?wkly,?Herceptin,?Perjeta 07/12/2023 1 21 Curative?(primary) Taxotere,?Carboplatin,?Trastuzumab?1 07/21/2023 1 21 Curative?(primary) Zoledronic?Acid?4?mg?adjuvant 01/06/2024 1 180 Curative?(adjuvant) DOXOrubicin?60,?Cyclophos?600 01/21/2024 1 14 Curative?(adjuvant) KADCYLA?post-neoadjuvant 03/24/2024 1 21 Curative?(adjuvant) Trastuzumab?6?mg/kg? To?Finish?the?Year 10/11/2024 1 21 Curative?(adjuvant) HISTORY OF PRESENT ILLNESS: Femi Khan is a 44-year-old SPA speaking female without any significant past medical history has the following oncology history. 07/04/2019: Ms. Khan had right breast diagnostic mammogram for right breast pain of 1 year duration along with palpable masses in the right breast on clinical breast examination 2 months before 07/04/2019: Right breast ultrasound 08/16/2020: Bilateral diagnostic digital mammography? 08/16/2020: Right breast ultrasound was obtained for unspecified lump in the right breast 02/18/2022: Bilateral screening digital mammograms 02/02/2023: Bilateral screening mammograms 04/02/2023: Right breast ultrasound 04/02/2023: Right breast diagnosed mammogram? 04/21/2023: Right breast diagnostic mammogram 05/05/2023: Ultrasound-guided percutaneous biopsy of the right breast mass 05/25/2023: PET/CT scan 05/27/2023: BRCA 1and2 1 and 2 urinalysis 06/08/2023: AST 26, ALT 37, T. bili 0.4 06/08/2023: Ms. Bunch had first cycle of TCHP chemotherapy in the neoadjuvant setting. 06/26/2023: AST 52, ALT 78, T. bili 0.6 06/29/2023: AST 50, ALT 88 07/02/2023: AST 60, ALT 127, alk phos 121 07/07/2023: AST 22, ALT 52, alkaline phosphatase 115. 07/07/2023: Chemotherapy changed to weekly Taxol, Herceptin and Perjeta in view of elevated transaminases. 07/14/2023: AST 81, ALT 125, alk phos 145. 07/07/2023: Ultrasound of the abdomen 07/14/2023: Hepatitis panel negative 07/21/2023: AST 38, ALT 58, alkaline phosphatase 154. 07/21/2023: Ms. Bunch received Taxotere, carboplatin and trastuzumab. Sol held again due to elevated liver enzymes. 08/11/2023: Ms. Bunch received second cycle of Taxotere, carboplatin and trastuzumab. 09/01/2023: Ms. Bunch received third cycle of Taxotere, carboplatin and trastuzumab. 09/22/2023: Ms. Bunch received fourth cycle of Taxotere, carboplatin and trastuzumab chemotherapy 11/05/2023: PET/CT scan 11/06/2023: Bilateral breast MRI with and without contrast 12/03/2022: Ms. Bunch had what appears to be right-sided modified radical mastectomy at [facility]. 03/16/2024: CT scan of the chest abdomen pelvis with IV contrast 03/20/2024: Ms. Bunch is started on adjuvant radiation therapy to the right chest wall in [place]. 03/24/2024: Ms. Bunch is started on adjuvant Ado-Trastuzumab Emtansine (Kadcyla) OTHER MEDICAL HISTORY/CONDITIONS: BREAST?CA,?COVID ?2017,?TUBAL?LIGATION?2017 ?Clone Other Med Hx? FAMILY HISTORY: Father:?DENIES Mother:?DENIES Sibling:?DENIES Children:?DENIES Cancer History:?paternal aunt stomach living maternal aunt colon living Patient?denies?family?cancer?history. ?Clone Family Hx? 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 Tobacco?Pack?per?Day:?0 Tobacco?Use:?DENIES ETOH?Use:?DENIES Drug?Note:?denies Social?History?Note:?lives?with?family ?Clone Social Hx? 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 Hormone?Use:? CONTROL USE YEARS AGO :?5 Live?Births:?3 Age?1st?:?25 Gynecological?Note:?2?MISCARRIAGES Gynecological?Note?2:?1 SISTER, 2 DAUGHTERS, 5MATERNAL AUNTS, 6 PATERNAL AUNTS ?Clone SQL REPORT ANALYST Hx? MEDICATIONS: 1. None?[place] Meds? Medications Last Reconciled by Carissa Oliveira MA on 12/13/2024 ALLERGIES: PENICILLAMINE REVIEW OF SYSTEMS: A complete 14-point review of systems was performed and is negative except as noted in interval history. PHYSICAL EXAMINATION:?[facility] PE? VITAL SIGNS: Temperature?98.2, B/P?113/63, Oxygen?Saturation?97% Weight?146?lbs (Change?since?12/12/24:?-2.4?lbs) PAIN: 0 - No pain ECOG Performance Status: 0 - Asymptomatic and fully active GENERAL APPEARANCE: Appears well, in no apparent distress, appropriately interactive. HEENT: Normocephalic, no temporal wasting, normal conjunctiva, no scleral icterus, normal hearing, lips without lesions, neck normal range of motion. CARDIOVASCULAR: Not assessed. PULMONARY: Normal respiratory effort, no respiratory distress or use of accessory muscles, speaking in full sentences, no tachypnea. EXTREMITIES: No pedal edema or cyanosis. SKIN: Normal skin appearance. NEUROLOGIC: Alert and oriented x4. PSHYCHIATRIC: Appropriate affect, mood normal, behavior normal, intact thought and speech. LABORATORY DATA: I have personally reviewed and interpreted each of the patient?s relevant lab tests, abnormal findings are below: Date 12/07/24 12/12/24 ??WHITE?BLOOD?COUNT?(Thou/mm3) 4.1 5.1 ??RED?BLOOD?COUNT?(Miln/mm3) 4.13 4.04 ??HEMOGLOBIN?(gm/dl) 11.9?L 11.6?L ??HEMATOCRIT?(%) 34.6?L 33.4?L ??PLATELET?COUNT?(Thou/mm3) 208 193 ??NEUTROPHILS?%,?AUTO?(%) 57 66 ??LYMPH?%,?AUTO?(%) 33 25 ??NEUTROPHILS,?AUTO?(Thou/mm3) 2.3 3.4 ??GLUCOSE,RANDOM?(mg/dL) 106 140?H ??BLOOD?UREA?NITROGEN?(mg/dL) 17 13 ??CREATININE?(mg/dL) 0.50?L 0.60 ??SODIUM?(mmol/L) 141 143 ??POTASSIUM?(mmol/L) 4.1 3.7 ??CHLORIDE?(mmol/L) 106 105 ??CrCl?(CandG)?(ml/min) 152.30 128.47 ??AST/SGOT?(Unit/L) 75?H 115?H ??ALT/SGPT?(Unit/L) 95?H 190?H ??ALKALINE?PHOSPHATASE?(Unit/L) 322?H 358?H ??BILIRUBIN,?TOTAL?(mg/dL) 0.6 0.8 ??PROTEIN?TOTAL?(gm/dl) 7.1 7.3 ??ALBUMIN,?SERUM?(gm/dl) 4.5 4.6 ??GLOBULIN?(gm/dl) 2.6 2.7 ??ALBUMIN/GLOBULIN?RATIO 1.7 1.7 ??CALCIUM,?SERUM?(mg/dL) 8.9 9.4 ??CALCIUM?SERUM?(CORRECTED)?(mg/dL) 8.9 9.4 ASSESSMENT/PLAN:?Eleazar Juarez Assessment/Plan? 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 FISH was negative. At [facility] patient was told to be triple negative patient has been getting kadcyla last dose was in 07/2024 patient have worsening transaminitis Kadcyla was stopped and Herceptin was started MRI liver was negative Matera testing for MRD negative Theresa Femi Valdez is a patient with a history of breast cancer undergoing Herceptin treatment, presenting with elevated liver enzymes and depression. Breast Cancer Assessment: Patient is currently undergoing Herceptin treatment for breast cancer. Treatment started in March of the previous year with a goal of 12 total treatments. To date, the patient has completed 7 Kadcyla treatments and 3 Herceptin treatments. The most recent Herceptin treatment was administered last Thursday. Plan: - Continue Herceptin treatment through January and February to complete the planned 12 treatments - Scheduled for mammogram of left breast Elevated Liver Enzymes Assessment: Patient's liver enzymes are elevated and have increased since the last measurement. Imaging has ruled out cancer or cysts in the liver, but inflammation is present. The cause of the liver inflammation requires further investigation. Plan: - Referral to liver specialist at [place] (approved in August, expires March 13) - Await appointment with liver specialist for further evaluation and management Depression Assessment: Patient's depression is reported to be very well controlled.she wants to cont follow up with pcp Plan: - Continue current management for depression - Monitor for any changes in mood or symptoms Hypertension Assessment: Blood pressure is well-controlled at 113/73 mmHg. Plan: - Continue current management for blood pressure control - Monitor blood pressure at future visits Physical Therapy Assessment: Patient has been approved for physical therapy from September to March. Plan: - Continue physical therapy as approved - Reassess need for ongoing physical therapy at next visit ORDERS: Order # Description [id number] CBC + Comprehensive Metabolic Panel [id number] Lab Appointment [id number] Follow Up Appointment [id number] Infusion 1 Hour [id number] Infusion 1 Hour [id number] Cardiac ECHO [id number] CBC + Comprehensive Metabolic Panel [id number] Lab Appointment [id number] Follow Up Appointment [id number] Cardiac ECHO [id number] CBC + Comprehensive Metabolic Panel [id number] Lab Appointment [id number] Follow Up Appointment [id number] Infusion 1 Hour [id number] CBC + Comprehensive Metabolic Panel [id number] Lab Appointment [id number] Follow Up Appointment [id number] CBC + Comprehensive Metabolic Panel [id number] Lab Appointment [id number] Follow Up Appointment [id number] CBC + Comprehensive Metabolic Panel [id number] Lab Appointment [id number] Follow Up Appointment [id number] Cardiac ECHO [id number] Infusion 1 Hour [id number] CBC + Comprehensive Metabolic Panel [id number] Lab Appointment [id number] Follow Up Appointment [id number] CBC + Comprehensive Metabolic Panel [id number] Lab Appointment [id number] Follow Up Appointment [id number] Infusion 1 Hour [id number] CBC + Comprehensive Metabolic Panel [id number] Lab Appointment [id number] Follow Up Appointment [id number] Infusion 1 Hour [id number] CBC + Comprehensive Metabolic Panel [id number] Lab Appointment [id number] Follow Up Appointment [id number] Infusion 1 Hour [id number] CBC + Comprehensive Metabolic Panel [id number] Lab Appointment [id number] Follow Up Appointment [id number] Infusion 1 Hour [id number] CBC + Comprehensive Metabolic Panel [id number] Lab Appointment [id number] Follow Up Appointment [id number] Cardiac ECHO [id number] Infusion 1 Hour [id number] CBC + Comprehensive Metabolic Panel [id number] Lab Appointment [id number] Follow Up Appointment [id number] Infusion 1 Hour [id number] Infusion 1 Hour [id number] CBC + Comprehensive Metabolic Panel [id number] Lab Appointment [id number] Follow Up Appointment [id number] Infusion 1 Hour [id number] CBC + Comprehensive Metabolic Panel [id number] Lab Appointment [id number] Follow Up Appointment [id number] Infusion 1 Hour [id number] Infusion 1 Hour RETURN TO CLINIC: BILLING AND COMPLIANCE: I reviewed external records from providers outside my specialty as summarized above. I spent a total of 50 minutes on this patient?s care on the day of their visit excluding time spent related to any billed procedures. This time includes time spent with the patient as well as time spent documenting in the medical record, reviewing patients records and tests, obtaining history, placing orders, communicating with other healthcare professionals, counseling the patient, family or caregiver, and/or care coordination for the diagnoses above. Electronically Signed by: Orville Juarez MD T: 12:11 PM CC: PCP: Aviva Santos Referring: Aviva Santos This document was completed utilizing speech recognition software. Grammatical errors, random word insertions, pronoun errors, and incomplete sentences are an occasional consequence of this system due to software limitations, ambient noise, and hardware issues. Any formal questions or concerns about the content, text or information contained within the body of this dictation should be directly addressed to the provider for clarification.
[2024-12-21 12:03] LABS: Alanine Aminotransferase 153 U/L (10-49); Albumin, Serum 4.5 gm/dL (3.5-5.0); Albumin/Globulin Ratio 1.9 (1.2-2.2); Alkaline Phosphatase 353 U/L (46-116); Anion Gap 11 (7-16); Aspartate Amino Transferase 88 U/L (0-34); BUN/Creatinine Ratio 22 Ratio (12-20); Bilirubin,Total 0.8 mg/dL (0.3-1.2); Blood Urea Nitrogen 13 mg/dL (9-23); Calcium 9.2 mg/dL (8.3-10.6); Calcium (Corrected) 9.2 mg/dL (8.5-10.1); Chloride 106 mMol/L (98-107); Creatinine (Component) 0.6 mg/dL (0.6-1.3); Globulin 2.4 gm/dL (2.3-3.5); Glucose 147 mg/dL (74-106); Osmolality,Calculated 288 (275-295); Sodium 143 mMol/L (136-145); Total Protein 6.9 gm/dL (5.7-8.2); eGFR > 60 See Note
== END 2024-12-24 23:59 | disposition home or self-care (01) ==
LOC: SCTC 11:01
PROVIDERS: PCP Internal Medicine; Referring Provider Internal Medicine; Visit Provider Internal Medicine Hematology & Oncology
DX: Z51.11 Encounter for antineoplastic chemotherapy (principal); C50.811 Malignant neoplasm of overlapping sites of right female breast; Z17.421 Hormone receptor negative with human epidermal growth factor receptor 2 negative status; Z90.11 Acquired absence of right breast and nipple; R74.8 Abnormal levels of other serum enzymes; F32.A Depression, unspecified; I10 Essential (primary) hypertension
CPT/HCPCS: 36591; 80053; 85025; 96360; 96361; 96413; 99213; A4216; J1642; J7030; J7050; Q5117; G0463

== ENCOUNTER → 2025-01-05 | Outpatient (CLI) | payer MEDICAID, SELFPAY ==
--- NOTE | 2025-01-05 16:30 | ECHO_ITS ---
Transthoracic Echo Report Ht (in): 60 Wt (lb): 149 Exam Location: Echo Lab Status: Preadmit Senior Counsel Commercial: Heavenly Bee Indications: Procedure Performed: BP: / HR: MEASUREMENTS (Male / Female) Normal Values 2D ECHO LV Diastolic Diameter PLAX 4.5 cm 4.2 - 5.9 / 3.9 - 5.3 cm LV Systolic Diameter PLAX 2.8 cm IVS Diastolic Thickness 0.7 cm 0.6 - 1.0 / 0.6 - 0.9 cm LVPW Diastolic Thickness 0.7 cm 0.6 - 1.0 / 0.6 - 0.9 cm LV Relative Wall Thickness 0.3 LVOT Diameter 1.6 cm Aortic Root Diameter 2.5 cm LA Systolic Diameter LX 3.0 cm 3.0 - 4.0 / 2.7 - 3.8 cm LA Volume Index 25.8 cm?/m? 16 - 28 cm?/m? M-MODE Aortic Root Diameter MM 2.4 cm LA Systolic Diameter MM 3.9 cm LA Ao Ratio MM 1.6 AV Cusp Separation MM 1.9 cm DOPPLER AV Peak Velocity 136.0 cm/s AV Peak Gradient 7.4 mmHg AV Mean Gradient 4.0 mmHg AV Velocity Time Integral 28.5 cm LVOT Peak Velocity 116.0 cm/s LVOT Peak Gradient 5.4 mmHg LVOT Velocity Time Integral 23.0 cm AV Area Cont Eq vti 1.6 cm? AV Area Cont Eq pk 1.7 cm? MV Area PHT 5.4 cm? Mitral E Point Velocity 86.3 cm/s Mitral A Point Velocity 79.5 cm/s Mitral E to A Ratio 1.1 LV E' Lateral Velocity 12.4 cm/s Mitral E to LV E' Lateral Ratio 7.0 LV E' Septal Velocity 8.8 cm/s Mitral E to LV E' Septal Ratio 9.8 TR Peak Velocity 168.0 cm/s TR Peak Gradient 11.3 mmHg PV Peak Velocity 96.4 cm/s PV Peak Gradient 3.7 mmHg FINDINGS Left Ventricle Normal left ventricular size, wall thickness, systolic function with no obvious regional wall motion abnormalities. Normal left ventricular diastolic filling pattern for age. The ejection fraction is visually estimated at 65%. Right Ventricle The right ventricle is normal in size and systolic function. The estimated right ventricular systolic pressure, 11 mmHg. RAP 5mmHg. Left Atrium The left atrium is normal by two-dimensional, color flow and Doppler imaging with no structural abnormalities, no thrombus formation present. Right Atrium The right atrium is normal by two-dimensional imaging, color flow and Doppler imaging with no structural abnormalities, no thrombus formation present. Atrial Septum The interatrial septum appears normal with no evidence of a shunt. Aorta The aorta is normal by two-dimensional, color flow and Doppler interrogation. Mitral Valve The mitral valve is normal by two-dimensional, color flow and Doppler interrogation. There is trace mitral regurgitation. Aortic Valve The aortic valve is trileaflet and normal by two-dimensional, color flow and Doppler interrogation. There is no significant aortic valve regurgitation. Tricuspid Valve The tricuspid valve is normal by two-dimensional, color flow and Doppler interrogation. There is trace tricuspid regurgitation. Pulmonic Valve The pulmonic valve is not well visualized. There is no significant pulmonic valve regurgitation. Vessels The pulmonary artery appears normal. The inferior vena cava pulmonary and hepatic veins appear normal. Pericardium The pericardium is normal by two-dimensional imaging. There is no significant pericardial effusion. CONCLUSIONS Indications: Breast Cancer The transthoracic study is normal by two-dimensional, color flow imaging and Doppler interrogation. Normal left ventricular size and function. .Approximate ejection fraction is 65%. Normal RV. RVSP 11mmHg. RAP 5mmHg. Trace MR, TR. No pericardial effusion. Sonia Dillard (Electronically Signed) Final Date: 09 January 2025 12:52
== END | disposition home or self-care (01) ==
LOC: SDIM 16:15
PROVIDERS: PCP Registered Nurse Community Health; Referring Provider Internal Medicine Hematology & Oncology; Visit Provider Internal Medicine Hematology & Oncology
DX: I08.1 Rheumatic disorders of both mitral and tricuspid valves (principal); C50.411 Malignant neoplasm of upper-outer quadrant of right female breast
CPT/HCPCS: 93306

== ENCOUNTER 2025-01-18 08:06 | Outpatient (RCR) | payer MEDICAID, SELFPAY ==
[2024-12-27 12:29] LABS: Basophils % (Auto) 0 % (0-2.5); Eosinophils # (Auto) 0.1 Thou/mm3 (0.0-0.5); Eosinophils % (Auto) 3 % (0-10); Hematocrit 30.7 % (36.0-46.0); Hemoglobin 10.9 g/dL (12.0-16.0); Immature Granulocytes % (Auto) 0 % (0-0); Lymphocytes # (Auto) 1.2 Thou/mm3 (1.0-4.8); Lymphocytes % (Auto) 33 % (10-50); Mean Corpuscular HGB Conc 35.5 g/dl (31.0-37.0); Mean Corpuscular Hemoglobin 29.3 pg (25.0-35.0); Mean Corpuscular Volume 83 fL (80-100); Monocytes # (Auto) 0.3 Thou/mm3 (0.0-0.8); Monocytes % (Auto) 8 % (0-12); Neutrophils # (Auto) 2.2 Thou/mm3 (1.8-7.7); Neutrophils % (Auto) 57 % (37-80); Nucleated Red Blood Cell % 0 /100 WBC (0); Platelet Count 161 Thou/mm3 (140-440); RDW Standard Deviation 44.7 fL (36.4-46.3); Red Blood Count 3.72 Miln/mm3 (4.00-5.20); White Blood Count 3.8 Thou/mm3 (3.6-11.0)
[2024-12-27 13:03] LABS: Alanine Aminotransferase 83 U/L (10-49); Albumin, Serum 4.4 gm/dL (3.5-5.0); Albumin/Globulin Ratio 2.1 (1.2-2.2); Alkaline Phosphatase 295 U/L (46-116); Anion Gap 13 (7-16); Aspartate Amino Transferase 56 U/L (0-34); BUN/Creatinine Ratio 25 Ratio (12-20); Bilirubin,Total 1.4 mg/dL (0.3-1.2); Blood Urea Nitrogen 15 mg/dL (9-23); Calcium 8.9 mg/dL (8.3-10.6); Calcium (Corrected) 8.9 mg/dL (8.5-10.1); Carbon Dioxide 25.6 mMol/L (20.0-31.0); Chloride 106 mMol/L (98-107); Creatinine (Component) 0.6 mg/dL (0.6-1.3); Globulin 2.1 gm/dL (2.3-3.5); Glucose 153 mg/dL (74-106); Osmolality,Calculated 292 (275-295); Sodium 145 mMol/L (136-145); Total Protein 6.5 gm/dL (5.7-8.2); eGFR > 60 See Note
[2024-12-28 10:37] LABS: Alanine Aminotransferase 90 U/L (10-49); Albumin, Serum 4.6 gm/dL (3.5-5.0); Albumin/Globulin Ratio 2.1 (1.2-2.2); Alkaline Phosphatase 304 U/L (46-116); Anion Gap 8 (7-16); Aspartate Amino Transferase 63 U/L (0-34); BUN/Creatinine Ratio 20 Ratio (12-20); Bilirubin,Total 1.1 mg/dL (0.3-1.2); Blood Urea Nitrogen 10 mg/dL (9-23); Calcium 9.7 mg/dL (8.3-10.6); Calcium (Corrected) 9.7 mg/dL (8.5-10.1); Carbon Dioxide 25.6 mMol/L (20.0-31.0); Chloride 105 mMol/L (98-107); Creatinine (Component) 0.5 mg/dL (0.6-1.3); Globulin 2.2 gm/dL (2.3-3.5); Glucose 98 mg/dL (74-106); Osmolality,Calculated 276 (275-295); Sodium 139 mMol/L (136-145); Total Protein 6.8 gm/dL (5.7-8.2); eGFR > 60 See Note
[2025-01-04 09:09] LABS: Basophils % (Auto) 1 % (0-2.5); Eosinophils # (Auto) 0.1 Thou/mm3 (0.0-0.5); Eosinophils % (Auto) 2 % (0-10); Hematocrit 31.3 % (36.0-46.0); Immature Granulocytes % (Auto) 0 % (0-0); Immature Granulocytes Auto 0.01 Thou/mm3 (0.00-0.00); Lymphocytes # (Auto) 1.5 Thou/mm3 (1.0-4.8); Lymphocytes % (Auto) 36 % (10-50); Mean Corpuscular HGB Conc 35.1 g/dl (31.0-37.0); Mean Corpuscular Hemoglobin 29.6 pg (25.0-35.0); Mean Corpuscular Volume 84 fL (80-100); Monocytes # (Auto) 0.3 Thou/mm3 (0.0-0.8); Monocytes % (Auto) 8 % (0-12); Neutrophils # (Auto) 2.1 Thou/mm3 (1.8-7.7); Neutrophils % (Auto) 52 % (37-80); Nucleated Red Blood Cell % 0 /100 WBC (0); Platelet Count 157 Thou/mm3 (140-440); RDW Standard Deviation 44.9 fL (36.4-46.3); Red Blood Count 3.71 Miln/mm3 (4.00-5.20)
[2025-01-04 09:27] LABS: Alanine Aminotransferase 126 U/L (10-49); Albumin, Serum 4.4 gm/dL (3.5-5.0); Albumin/Globulin Ratio 2.1 (1.2-2.2); Alkaline Phosphatase 263 U/L (46-116); Anion Gap 9 (7-16); BUN/Creatinine Ratio 35 Ratio (12-20); Bilirubin,Total 0.7 mg/dL (0.3-1.2); Blood Urea Nitrogen 14 mg/dL (9-23); Calcium 9.6 mg/dL (8.3-10.6); Calcium (Corrected) 9.6 mg/dL (8.5-10.1); Carbon Dioxide 26.3 mMol/L (20.0-31.0); Chloride 104 mMol/L (98-107); Creatinine (Component) 0.4 mg/dL (0.6-1.3); Globulin 2.1 gm/dL (2.3-3.5); Glucose 103 mg/dL (74-106); Osmolality,Calculated 278 (275-295); Potassium 3.9 mMol/L (3.4-5.1); Sodium 139 mMol/L (136-145); Total Protein 6.5 gm/dL (5.7-8.2); eGFR > 60 See Note
[2025-01-04 09:49] LABS: Aspartate Amino Transferase 88 U/L (0-34)
[2025-01-10 11:15] LABS: Basophils % (Auto) 1 % (0-2.5); Eosinophils # (Auto) 0.1 Thou/mm3 (0.0-0.5); Eosinophils % (Auto) 3 % (0-10); Hematocrit 31.6 % (36.0-46.0); Immature Granulocytes % (Auto) 0 % (0-0); Immature Granulocytes Auto 0.01 Thou/mm3 (0.00-0.00); Lymphocytes # (Auto) 1.3 Thou/mm3 (1.0-4.8); Lymphocytes % (Auto) 31 % (10-50); Mean Corpuscular HGB Conc 34.8 g/dl (31.0-37.0); Mean Corpuscular Hemoglobin 29.5 pg (25.0-35.0); Mean Corpuscular Volume 85 fL (80-100); Monocytes # (Auto) 0.3 Thou/mm3 (0.0-0.8); Monocytes % (Auto) 7 % (0-12); Neutrophils # (Auto) 2.4 Thou/mm3 (1.8-7.7); Neutrophils % (Auto) 59 % (37-80); Nucleated Red Blood Cell % 0 /100 WBC (0); Platelet Count 171 Thou/mm3 (140-440); RDW Standard Deviation 45.1 fL (36.4-46.3); Red Blood Count 3.73 Miln/mm3 (4.00-5.20); White Blood Count 4.1 Thou/mm3 (3.6-11.0)
[2025-01-10 11:33] LABS: Alanine Aminotransferase 139 U/L (10-49); Albumin, Serum 4.6 gm/dL (3.5-5.0); Albumin/Globulin Ratio 2.2 (1.2-2.2); Alkaline Phosphatase 289 U/L (46-116); Anion Gap 8 (7-16); Aspartate Amino Transferase 88 U/L (0-34); BUN/Creatinine Ratio 24 Ratio (12-20); Bilirubin,Total 1.1 mg/dL (0.3-1.2); Blood Urea Nitrogen 12 mg/dL (9-23); Calcium 9.3 mg/dL (8.3-10.6); Calcium (Corrected) 9.3 mg/dL (8.5-10.1); Carbon Dioxide 26.9 mMol/L (20.0-31.0); Chloride 107 mMol/L (98-107); Creatinine (Component) 0.5 mg/dL (0.6-1.3); Globulin 2.1 gm/dL (2.3-3.5); Glucose 100 mg/dL (74-106); Osmolality,Calculated 282 (275-295); Potassium 3.8 mMol/L (3.4-5.1); Sodium 142 mMol/L (136-145); Total Protein 6.7 gm/dL (5.7-8.2); eGFR > 60 See Note
[2025-01-17 13:29] LABS: Basophils % (Auto) 1 % (0-2.5); Eosinophils # (Auto) 0.1 Thou/mm3 (0.0-0.5); Eosinophils % (Auto) 2 % (0-10); Hematocrit 31.4 % (36.0-46.0); Hemoglobin 10.6 g/dL (12.0-16.0); Immature Granulocytes % (Auto) 0 % (0-0); Immature Granulocytes Auto 0.01 Thou/mm3 (0.00-0.00); Lymphocytes # (Auto) 1.5 Thou/mm3 (1.0-4.8); Lymphocytes % (Auto) 26 % (10-50); Mean Corpuscular HGB Conc 33.8 g/dl (31.0-37.0); Mean Corpuscular Hemoglobin 29.9 pg (25.0-35.0); Mean Corpuscular Volume 89 fL (80-100); Monocytes # (Auto) 0.4 Thou/mm3 (0.0-0.8); Monocytes % (Auto) 7 % (0-12); Neutrophils # (Auto) 3.7 Thou/mm3 (1.8-7.7); Neutrophils % (Auto) 65 % (37-80); Nucleated Red Blood Cell % 0 /100 WBC (0); Platelet Count 186 Thou/mm3 (140-440); RDW Standard Deviation 47.6 fL (36.4-46.3); Red Blood Count 3.55 Miln/mm3 (4.00-5.20); White Blood Count 5.7 Thou/mm3 (3.6-11.0)
[2025-01-17 13:35] LABS: Bilirubin,Direct 0.2 mg/dL (0.0-0.3); Bilirubin,Indirect 0.5 mg/dL (0.0-1.1); Bilirubin,Total 0.7 mg/dL (0.3-1.2)
[2025-01-17 13:39] LABS: Alanine Aminotransferase 143 U/L (10-49); Albumin, Serum 4.3 gm/dL (3.5-5.0); Alkaline Phosphatase 277 U/L (46-116); Anion Gap 8 (7-16); Aspartate Amino Transferase 72 U/L (0-34); BUN/Creatinine Ratio 20 Ratio (12-20); Bilirubin,Total 0.7 mg/dL (0.3-1.2); Blood Urea Nitrogen 14 mg/dL (9-23); Calcium 9.2 mg/dL (8.3-10.6); Calcium (Corrected) 9.2 mg/dL (8.5-10.1); Carbon Dioxide 25.1 mMol/L (20.0-31.0); Chloride 106 mMol/L (98-107); Creatinine (Component) 0.7 mg/dL (0.6-1.3); Globulin 2.2 gm/dL (2.3-3.5); Glucose 102 mg/dL (74-106); Osmolality,Calculated 278 (275-295); Potassium 4.1 mMol/L (3.4-5.1); Sodium 139 mMol/L (136-145); Total Protein 6.5 gm/dL (5.7-8.2); eGFR > 60 See Note
== END 2025-01-23 23:59 | disposition home or self-care (01) ==
LOC: SCTC 08:06
PROVIDERS: PCP Registered Nurse Community Health; Referring Provider Registered Nurse Community Health; Visit Provider Internal Medicine Hematology & Oncology
DX: Z51.11 Encounter for antineoplastic chemotherapy (principal); C50.811 Malignant neoplasm of overlapping sites of right female breast; C77.3 Secondary and unspecified malignant neoplasm of axilla and upper limb lymph nodes; Z17.1 Estrogen receptor negative status [ER-]; Z17.22 Progesterone receptor negative status; Z17.32 Human epidermal growth factor receptor 2 negative status; R74.8 Abnormal levels of other serum enzymes; F32.A Depression, unspecified; I10 Essential (primary) hypertension
CPT/HCPCS: 36591; 80053; 82247; 82248; 84450; 85025; 96360; 96361; 96413; A4216; J1642; J7030; J7040; J7050; Q5117

== ENCOUNTER 2025-02-23 10:59 | Outpatient (RCR) | payer BC, MEDICAID, SELFPAY ==
[2025-01-24 16:29] LABS: Basophils # (Auto) 0.0 Thou/mm3 (0.0-0.2); Basophils % (Auto) 1 % (0-2.5); Eosinophils # (Auto) 0.1 Thou/mm3 (0.0-0.5); Eosinophils % (Auto) 3 % (0-10); Hematocrit 30.9 % (36.0-46.0); Hemoglobin 10.6 g/dL (12.0-16.0); Immature Granulocytes Auto 0.01 Thou/mm3 (0.00-0.00); Lymphocytes # (Auto) 1.6 Thou/mm3 (1.0-4.8); Lymphocytes % (Auto) 37 % (10-50); Mean Corpuscular HGB Conc 34.3 g/dl (31.0-37.0); Mean Corpuscular Hemoglobin 29.5 pg (25.0-35.0); Mean Corpuscular Volume 86 fL (80-100); Monocytes # (Auto) 0.5 Thou/mm3 (0.0-0.8); Monocytes % (Auto) 11 % (0-12); Neutrophils # (Auto) 2.1 Thou/mm3 (1.8-7.7); Neutrophils % (Auto) 49 % (37-80); Nucleated Red Blood Cell # 0.00 Thou/mm3 (0.00-0.00); Nucleated Red Blood Cell % 0 /100 WBC (0); Platelet Count 183 Thou/mm3 (140-440); RDW Standard Deviation 45.8 fL (36.4-46.3); Red Blood Count 3.59 Miln/mm3 (4.00-5.20); White Blood Count 4.3 Thou/mm3 (3.6-11.0)
[2025-01-24 16:42] LABS: Bilirubin,Direct 0.2 mg/dL (0.0-0.3)
[2025-01-24 16:45] LABS: Alanine Aminotransferase 150 U/L (10-49); Albumin, Serum 4.4 gm/dL (3.5-5.0); Albumin/Globulin Ratio 1.7 (1.2-2.2); Alkaline Phosphatase 361 U/L (46-116); Anion Gap 7 (7-16); Aspartate Amino Transferase 68 U/L (0-34); BUN/Creatinine Ratio 30 Ratio (12-20); Bilirubin,Direct 0.2 mg/dL (0.0-0.3); Bilirubin,Indirect 0.4 mg/dL (0.0-1.1); Bilirubin,Total 0.6 mg/dL (0.3-1.2); Blood Urea Nitrogen 15 mg/dL (9-23); Calcium 9.2 mg/dL (8.3-10.6); Calcium (Corrected) 9.2 mg/dL (8.5-10.1); Carbon Dioxide 24.8 mMol/L (20.0-31.0); Chloride 108 mMol/L (98-107); Creatinine (Component) 0.5 mg/dL (0.6-1.3); Globulin 2.6 gm/dL (2.3-3.5); Glucose 95 mg/dL (74-106); Osmolality,Calculated 280 (275-295); Potassium 3.9 mMol/L (3.4-5.1); Sodium 140 mMol/L (136-145); Total Protein 7.0 gm/dL (5.7-8.2); eGFR > 60 See Note
--- NOTE | 2025-01-25 15:55 | CTCFLWUP_ITS ---
Patient: FEMI BUNCH. : 1980 Page 2 of 3 FOLLOW UP NOTE DATE OF SERVICE: 01/25/2025 NAME: FEMI BUNCH ACCOUNT: [id number] : 1980 AGE: 44 INTERVAL HISTORY: Summary eFmi Bunch, a female with breast cancer, presented for follow-up of ongoing Herceptin treatment and elevated liver enzymes. Her history includes depression, which is well-controlled. She has completed 6 Kadcyla treatments and 6 Herceptin treatments since March, with 3 more Kadcyla treatments planned through March her liver enzymes are elevated with inflammation present despite no cancer or cysts. Recent left breast mammogram was completed outside [facility] and was negative as per patient. Chief Complaint Follow-up for ongoing cancer treatment, elevated liver enzymes History of Present Illness Femi Bunch is a patient with a history of cancer undergoing treatment with Herceptin. Her depression is reported to be very good. She is currently receiving Herceptin treatments, which started in March of the previous year, with a goal of 12 total treatments. To date, she has completed 7 Kadcyla treatments and 3 Herceptin treatments. The plan is to continue the treatments through January and February. The patient's liver enzymes are noted to be elevated, with levels higher than her previous visit. While there is no cancer or cyst in the liver, inflammation is present. A referral to a liver specialist has been sent, but an appointment has not yet been scheduled. The patient is also scheduled for a mammogram of the left breast. Bharti is not taking any [id number] medications, supplements, or other medications. She has been approved for physical therapy from September to March. Medications and Supplements - Herceptin - Started in March last year - Received last week on Thursday - 3 treatments completed so far - Part of a planned 12 total treatments - Kadcyla - 7 treatments completed Review of Systems Psychiatric: Negative for depression. 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)., ER negative, IL negative, HER2/pranay overexpressed s/p biopsy of right breast mass as well as right axillary lesions on 05/05/2023 STAGE/TNM: Stage 3 TREATMENT HISTORY: Care?Plan Start?Date Cycle Day Intent DOCETAXEL,?CARBO,?HERCEPTIN,?PERJETA,?KADCYLA 06/08/2023 1 21 Curative?(primary) Taxol?80mg*2?wkly,?Herceptin,?Perjeta 07/12/2023 1 21 Curative?(primary) Taxotere,?Carboplatin,?Trastuzumab?1 07/21/2023 1 21 Curative?(primary) Zoledronic?Acid?4?mg?adjuvant 01/06/2024 1 180 Curative?(adjuvant) DOXOrubicin?60,?Cyclophos?600 01/21/2024 1 14 Curative?(adjuvant) KADCYLA?post-neoadjuvant 03/24/2024 1 21 Curative?(adjuvant) Trastuzumab?6?mg/kg? To?Finish?the?Year 10/11/2024 1 21 Curative?(adjuvant) HISTORY OF PRESENT ILLNESS: Femi Khan is a 44-year-old SPA speaking female without any significant past medical history has the following oncology history. 07/04/2019: Ms. Khan had right breast diagnostic mammogram for right breast pain of 1 year duration along with palpable masses in the right breast on clinical breast examination 2 months before 07/04/2019: Right breast ultrasound 08/16/2020: Bilateral diagnostic digital mammography? 08/16/2020: Right breast ultrasound was obtained for unspecified lump in the right breast 02/18/2022: Bilateral screening digital mammograms 02/02/2023: Bilateral screening mammograms 04/02/2023: Right breast ultrasound 04/02/2023: Right breast diagnosed mammogram? 04/21/2023: Right breast diagnostic mammogram 05/05/2023: Ultrasound-guided percutaneous biopsy of the right breast mass 05/25/2023: PET/CT scan 05/27/2023: BRCA 1and2 1 and 2 urinalysis 06/08/2023: AST 26, ALT 37, T. bili 0.4 06/08/2023: Ms. Bunch had first cycle of TCHP chemotherapy in the neoadjuvant setting. 06/26/2023: AST 52, ALT 78, T. bili 0.6 06/29/2023: AST 50, ALT 88 07/02/2023: AST 60, ALT 127, alk phos 121 07/07/2023: AST 22, ALT 52, alkaline phosphatase 115. 07/07/2023: Chemotherapy changed to weekly Taxol, Herceptin and Perjeta in view of elevated transaminases. 07/14/2023: AST 81, ALT 125, alk phos 145. 07/07/2023: Ultrasound of the abdomen 07/14/2023: Hepatitis panel negative 07/21/2023: AST 38, ALT 58, alkaline phosphatase 154. 07/21/2023: Ms. Bunch received Taxotere, carboplatin and trastuzumab. Perjeta held again due to elevated liver enzymes. 08/11/2023: Ms. Bunch received second cycle of Taxotere, carboplatin and trastuzumab. 09/01/2023: Ms. Bunch received third cycle of Taxotere, carboplatin and trastuzumab. 09/22/2023: Ms. Bunch received fourth cycle of Taxotere, carboplatin and trastuzumab chemotherapy 11/05/2023: PET/CT scan 11/06/2023: Bilateral breast MRI with and without contrast 12/03/2022: Ms. Bunch had what appears to be right-sided modified radical mastectomy at [facility]. 03/16/2024: CT scan of the chest abdomen pelvis with IV contrast 03/20/2024: Ms. Bunch is started on adjuvant radiation therapy to the right chest wall in [place]. 03/24/2024: Ms. Bunch is started on adjuvant Ado-Trastuzumab Emtansine (Kadcyla) OTHER MEDICAL HISTORY/CONDITIONS: BREAST?CA,?COVID ?2017,?TUBAL?LIGATION?2017 FAMILY HISTORY: Father:?DENIES Mother:?DENIES Sibling:?DENIES Children:?DENIES Cancer History:?paternal aunt stomach living maternal aunt colon living Patient?denies?family?cancer?history. SOCIAL HISTORY: Occupational?History:?[employer] Education?Level:?Completed High School Marital?Status:? 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 CONTROL USE YEARS AGO :?5 Live?Births:?3 Age?1st?:?25 Gynecological?Note:?2?MISCARRIAGES Gynecological?Note?2:?1 SISTER, 2 DAUGHTERS, 5MATERNAL AUNTS, 6 PATERNAL AUNTS MEDICATIONS: 1. None Medications Last Reconciled by Carissa Oliveira MA on 01/25/2025 ALLERGIES: PENICILLAMINE REVIEW OF SYSTEMS: A complete 14-point review of systems was performed and is negative except as noted in interval history. PHYSICAL EXAMINATION: VITAL SIGNS: Temperature?97.6, B/P?110/74, Oxygen?Saturation?99% Weight?146?lbs (Change?since?01/24/25:?-3?lbs) PAIN: 0 - No pain GENERAL APPEARANCE: Appears well, in no apparent distress, appropriately interactive. HEENT: Normocephalic, no temporal wasting, normal conjunctiva, no scleral icterus, normal hearing, lips without lesions, neck normal range of motion. CARDIOVASCULAR: Not assessed. PULMONARY: Normal respiratory effort, no respiratory distress or use of accessory muscles, speaking in full sentences, no tachypnea. EXTREMITIES: No pedal edema or cyanosis. SKIN: Normal skin appearance. NEUROLOGIC: Alert and oriented x4. PSHYCHIATRIC: Appropriate affect, mood normal, behavior normal, intact thought and speech. Vital Signs - Blood Pressure: 113/73 mmHg Laboratory, Imaging, and Diagnostic Test Results - Liver enzymes: Elevated, higher than previous results LABORATORY DATA: I have personally reviewed and interpreted each of the patient?s relevant lab tests, abnormal findings are below: Date 01/17/25 01/24/25 ??WHITE?BLOOD?COUNT?(Thou/mm3) ? 4.3 ??RED?BLOOD?COUNT?(Miln/mm3) ? 3.59?L ??HEMOGLOBIN?(gm/dl) ? 10.6?L ??HEMATOCRIT?(%) ? 30.9?L ??PLATELET?COUNT?(Thou/mm3) ? 183 ??NEUTROPHILS?%,?AUTO?(%) ? 49 ??LYMPH?%,?AUTO?(%) ? 37 ??NEUTROPHILS,?AUTO?(Thou/mm3) ? 2.1 ??GLUCOSE,RANDOM?(mg/dL) 102 95 ??BLOOD?UREA?NITROGEN?(mg/dL) 14 15 ??CREATININE?(mg/dL) 0.70 0.50?L ??SODIUM?(mmol/L) 139 140 ??POTASSIUM?(mmol/L) 4.1 3.9 ??CHLORIDE?(mmol/L) 106 108?H ??CrCl?(CandG)?(ml/min) 111.31 154.79 ??AST/SGOT?(Unit/L) 72?H 68?H ??ALT/SGPT?(Unit/L) 143?H 150?H ??ALKALINE?PHOSPHATASE?(Unit/L) 277?H 361?H ??BILIRUBIN,?TOTAL?(mg/dL) 0.7 0.6 ??PROTEIN?TOTAL?(gm/dl) 6.5 7.0 ??ALBUMIN,?SERUM?(gm/dl) 4.3 4.4 ??GLOBULIN?(gm/dl) 2.2?L 2.6 ??ALBUMIN/GLOBULIN?RATIO 2.0 1.7 ??CALCIUM,?SERUM?(mg/dL) 9.2 9.2 ??CALCIUM?SERUM?(CORRECTED)?(mg/dL) 9.2 9.2 ASSESSMENT/PLAN: Stage IIIb (cT4d, cN2a, 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 FISH was negative. At [facility] patient was told to be triple negative patient has been getting kadcyla last dose was in 07/2024 patient have worsening transaminitis Kadcyla was stopped and Herceptin was started MRI liver was negative Matera testing for MRD negative Patient now want to go back on Kadcyla which will be resumed for remaining 1 year of treatment Last mammogram negative 01/13/2025 echocardiogram stable Start Kadcyla as per patient request and complete 3 more cycles Elevated Liver Enzymes Patient have elevated liver enzymes with a normal bilirubin likely from drugs Will continue therapy with close monitoring 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 Plan: - Continue physical therapy as approved - Reassess need for ongoing physical therapy at next visit ORDERS: Order # Description [id number] Follow Up Appointment [id number] CBC + Comprehensive Metabolic Panel [id number] Lab Appointment [id number] Follow Up Appointment [id number] Cardiac ECHO [id number] Infusion 1 Hour [id number] Cardiac ECHO [id number] CBC + Comprehensive Metabolic Panel [id number] Lab Appointment [id number] Follow Up Appointment [id number] CBC + Comprehensive Metabolic Panel [id number] Lab Appointment [id number] Follow Up Appointment [id number] Infusion 1 Hour [id number] CBC + Comprehensive Metabolic Panel [id number] Lab Appointment [id number] Follow Up Appointment [id number] CBC + Comprehensive Metabolic Panel [id number] Lab Appointment [id number] Follow Up Appointment [id number] Infusion 1 Hour [id number] CBC + Comprehensive Metabolic Panel [id number] Lab Appointment [id number] Follow Up Appointment [id number] CBC + Comprehensive Metabolic Panel [id number] Lab Appointment [id number] Follow Up Appointment [id number] Infusion 1 Hour [id number] CBC + Comprehensive Metabolic Panel [id number] Lab Appointment [id number] Follow Up Appointment [id number] CBC + Comprehensive Metabolic Panel [id number] Lab Appointment [id number] Follow Up Appointment [id number] Infusion 1 Hour [id number] CBC + Comprehensive Metabolic Panel [id number] Lab Appointment [id number] Follow Up Appointment [id number] Cardiac ECHO [id number] Infusion 1 Hour [id number] CBC + Comprehensive Metabolic Panel [id number] Lab Appointment [id number] Follow Up Appointment [id number] Infusion 1 Hour [id number] Infusion 1 Hour [id number] CBC + Comprehensive Metabolic Panel [id number] Lab Appointment [id number] Follow Up Appointment [id number] Infusion 1 Hour [id number] CBC + Comprehensive Metabolic Panel [id number] Lab Appointment [id number] Follow Up Appointment [id number] Infusion 1 Hour [id number] Infusion 1 Hour RETURN TO CLINIC: I reviewed the diagnosis, prognosis, and recommended treatment/procedure options with the patient (and/or their legal inside account representative), including the potential benefits, risks, side effects and alternative therapies. We also discussed the option of no treatment and the possibility of clinical trial participation, if applicable. All questions were addressed, and they demonstrated understanding. They provided informed consent to proceed with the proposed plan of care. BILLING AND COMPLIANCE: I reviewed external records from providers outside my specialty as summarized above. I spent a total of 50 minutes on this patient?s care on the day of their visit excluding time spent related to any billed procedures. This time includes time spent with the patient as well as time spent documenting in the medical record, reviewing patients records and tests, obtaining history, placing orders, communicating with other healthcare professionals, counseling the patient, family or caregiver, and/or care coordination for the diagnoses above. Electronically Signed by: Orville Juarez MD T: 3:53 PM CC: PCP: Krysta Oliveira Referring: Krysta Oliveira This document was completed utilizing speech recognition software. Grammatical errors, random word insertions, pronoun errors, and incomplete sentences are an occasional consequence of this system due to software limitations, ambient noise, and hardware issues. Any formal questions or concerns about the content, text or information contained within the body of this dictation should be directly addressed to the provider for clarification.
[2025-02-15 15:20] LABS: Basophils # (Auto) 0.0 Thou/mm3 (0.0-0.2); Basophils % (Auto) 0 % (0-2.5); Eosinophils # (Auto) 0.1 Thou/mm3 (0.0-0.5); Eosinophils % (Auto) 2 % (0-10); Hematocrit 31.9 % (36.0-46.0); Hemoglobin 11.2 g/dL (12.0-16.0); Immature Granulocytes Auto 0.01 Thou/mm3 (0.00-0.00); Lymphocytes # (Auto) 1.7 Thou/mm3 (1.0-4.8); Lymphocytes % (Auto) 33 % (10-50); Mean Corpuscular HGB Conc 35.1 g/dl (31.0-37.0); Mean Corpuscular Hemoglobin 29.8 pg (25.0-35.0); Mean Corpuscular Volume 85 fL (80-100); Monocytes # (Auto) 0.4 Thou/mm3 (0.0-0.8); Monocytes % (Auto) 8 % (0-12); Neutrophils # (Auto) 3.0 Thou/mm3 (1.8-7.7); Neutrophils % (Auto) 56 % (37-80); Nucleated Red Blood Cell # 0.00 Thou/mm3 (0.00-0.00); Nucleated Red Blood Cell % 0 /100 WBC (0); Platelet Count 190 Thou/mm3 (140-440); RDW Standard Deviation 42.4 fL (36.4-46.3); Red Blood Count 3.76 Miln/mm3 (4.00-5.20); White Blood Count 5.3 Thou/mm3 (3.6-11.0)
[2025-02-15 15:38] LABS: Alanine Aminotransferase 86 U/L (10-49); Albumin, Serum 4.6 gm/dL (3.5-5.0); Albumin/Globulin Ratio 1.8 (1.2-2.2); Alkaline Phosphatase 249 U/L (46-116); Anion Gap 9 (7-16); Aspartate Amino Transferase 64 U/L (0-34); BUN/Creatinine Ratio 25 Ratio (12-20); Bilirubin,Direct 0.2 mg/dL (0.0-0.3); Bilirubin,Indirect 0.5 mg/dL (0.0-1.1); Bilirubin,Total 0.7 mg/dL (0.3-1.2); Blood Urea Nitrogen 15 mg/dL (9-23); Calcium 9.7 mg/dL (8.3-10.6); Calcium (Corrected) 9.7 mg/dL (8.5-10.1); Carbon Dioxide 26.4 mMol/L (20.0-31.0); Chloride 105 mMol/L (98-107); Creatinine (Component) 0.6 mg/dL (0.6-1.3); Globulin 2.6 gm/dL (2.3-3.5); Glucose 95 mg/dL (74-106); Osmolality,Calculated 280 (275-295); Potassium 3.8 mMol/L (3.4-5.1); Sodium 140 mMol/L (136-145); Total Protein 7.2 gm/dL (5.7-8.2); eGFR > 60 See Note
[2025-02-23 11:35] LABS: Basophils # (Auto) 0.0 Thou/mm3 (0.0-0.2); Basophils % (Auto) 1 % (0-2.5); Eosinophils # (Auto) 0.2 Thou/mm3 (0.0-0.5); Eosinophils % (Auto) 3 % (0-10); Hematocrit 34.5 % (36.0-46.0); Hemoglobin 11.9 g/dL (12.0-16.0); Immature Granulocytes Auto 0.02 Thou/mm3 (0.00-0.00); Lymphocytes # (Auto) 1.3 Thou/mm3 (1.0-4.8); Lymphocytes % (Auto) 26 % (10-50); Mean Corpuscular HGB Conc 34.5 g/dl (31.0-37.0); Mean Corpuscular Hemoglobin 30.0 pg (25.0-35.0); Mean Corpuscular Volume 87 fL (80-100); Monocytes # (Auto) 0.4 Thou/mm3 (0.0-0.8); Monocytes % (Auto) 9 % (0-12); Neutrophils # (Auto) 3.1 Thou/mm3 (1.8-7.7); Neutrophils % (Auto) 61 % (37-80); Nucleated Red Blood Cell # 0.00 Thou/mm3 (0.00-0.00); Nucleated Red Blood Cell % 0 /100 WBC (0); Platelet Count 87 Thou/mm3 (140-440); RDW Standard Deviation 44.1 fL (36.4-46.3); Red Blood Count 3.97 Miln/mm3 (4.00-5.20); White Blood Count 5.1 Thou/mm3 (3.6-11.0)
[2025-02-23 11:48] LABS: Alanine Aminotransferase 194 U/L (10-49); Albumin, Serum 4.4 gm/dL (3.5-5.0); Albumin/Globulin Ratio 1.6 (1.2-2.2); Alkaline Phosphatase 356 U/L (46-116); Anion Gap 6 (7-16); Aspartate Amino Transferase 107 U/L (0-34); BUN/Creatinine Ratio 17 Ratio (12-20); Bilirubin,Total 0.7 mg/dL (0.3-1.2); Blood Urea Nitrogen 10 mg/dL (9-23); Calcium 9.4 mg/dL (8.3-10.6); Calcium (Corrected) 9.4 mg/dL (8.5-10.1); Carbon Dioxide 26.1 mMol/L (20.0-31.0); Chloride 108 mMol/L (98-107); Creatinine (Component) 0.6 mg/dL (0.6-1.3); Globulin 2.7 gm/dL (2.3-3.5); Glucose 174 mg/dL (74-106); Osmolality,Calculated 282 (275-295); Potassium 3.7 mMol/L (3.4-5.1); Sodium 140 mMol/L (136-145); Total Protein 7.1 gm/dL (5.7-8.2); eGFR > 60 See Note
== END 2025-02-23 23:59 | disposition home or self-care (01) ==
LOC: SCTC 10:59
PROVIDERS: PCP Registered Nurse Community Health; Referring Provider Registered Nurse Community Health; Visit Provider Internal Medicine Hematology & Oncology
DX: Z51.11 Encounter for antineoplastic chemotherapy (principal); C50.811 Malignant neoplasm of overlapping sites of right female breast; Z17.421 Hormone receptor negative with human epidermal growth factor receptor 2 negative status; Z90.11 Acquired absence of right breast and nipple; R74.8 Abnormal levels of other serum enzymes
CPT/HCPCS: 36591; 80053; 82247; 82248; 85025; 96360; 96367; 96413; 99213; A4216; J1100; J1642; J2405; J7030; J7040; J7050; J9354; G0463

== ENCOUNTER 2025-03-23 14:26 | Outpatient (RCR) | payer BC, MEDICAID, SELFPAY ==
[2025-03-02 13:36] LABS: Basophils # (Auto) 0.0 Thou/mm3 (0.0-0.2); Basophils % (Auto) 1 % (0-2.5); Eosinophils # (Auto) 0.1 Thou/mm3 (0.0-0.5); Eosinophils % (Auto) 2 % (0-10); Hematocrit 35.6 % (36.0-46.0); Hemoglobin 11.9 g/dL (12.0-16.0); Immature Granulocytes Auto 0.01 Thou/mm3 (0.00-0.00); Lymphocytes # (Auto) 1.7 Thou/mm3 (1.0-4.8); Lymphocytes % (Auto) 34 % (10-50); Mean Corpuscular HGB Conc 33.4 g/dl (31.0-37.0); Mean Corpuscular Hemoglobin 29.0 pg (25.0-35.0); Mean Corpuscular Volume 87 fL (80-100); Monocytes # (Auto) 0.6 Thou/mm3 (0.0-0.8); Monocytes % (Auto) 11 % (0-12); Neutrophils # (Auto) 2.7 Thou/mm3 (1.8-7.7); Neutrophils % (Auto) 53 % (37-80); Nucleated Red Blood Cell # 0.00 Thou/mm3 (0.00-0.00); Nucleated Red Blood Cell % 0 /100 WBC (0); Platelet Count 168 Thou/mm3 (140-440); RDW Standard Deviation 45.1 fL (36.4-46.3); Red Blood Count 4.10 Miln/mm3 (4.00-5.20); White Blood Count 5.1 Thou/mm3 (3.6-11.0)
[2025-03-02 13:53] LABS: Alanine Aminotransferase 112 U/L (10-49); Albumin, Serum 4.6 gm/dL (3.5-5.0); Albumin/Globulin Ratio 1.8 (1.2-2.2); Alkaline Phosphatase 326 U/L (46-116); Anion Gap 10 (7-16); Aspartate Amino Transferase 73 U/L (0-34); BUN/Creatinine Ratio 23 Ratio (12-20); Bilirubin,Direct 0.2 mg/dL (0.0-0.3); Bilirubin,Indirect 0.6 mg/dL (0.0-1.1); Bilirubin,Total 0.8 mg/dL (0.3-1.2); Blood Urea Nitrogen 14 mg/dL (9-23); Calcium 9.8 mg/dL (8.3-10.6); Calcium (Corrected) 9.8 mg/dL (8.5-10.1); Carbon Dioxide 26.2 mMol/L (20.0-31.0); Chloride 107 mMol/L (98-107); Creatinine (Component) 0.6 mg/dL (0.6-1.3); Globulin 2.5 gm/dL (2.3-3.5); Glucose 129 mg/dL (74-106); Osmolality,Calculated 287 (275-295); Potassium 3.8 mMol/L (3.4-5.1); Sodium 143 mMol/L (136-145); Total Protein 7.1 gm/dL (5.7-8.2); eGFR > 60 See Note
[2025-03-08 14:06] LABS: Basophils # (Auto) 0.0 Thou/mm3 (0.0-0.2); Basophils % (Auto) 1 % (0-2.5); Eosinophils # (Auto) 0.1 Thou/mm3 (0.0-0.5); Eosinophils % (Auto) 2 % (0-10); Hematocrit 34.3 % (36.0-46.0); Hemoglobin 11.5 g/dL (12.0-16.0); Immature Granulocytes Auto 0.01 Thou/mm3 (0.00-0.00); Lymphocytes # (Auto) 1.9 Thou/mm3 (1.0-4.8); Lymphocytes % (Auto) 37 % (10-50); Mean Corpuscular HGB Conc 33.5 g/dl (31.0-37.0); Mean Corpuscular Hemoglobin 28.9 pg (25.0-35.0); Mean Corpuscular Volume 86 fL (80-100); Monocytes # (Auto) 0.5 Thou/mm3 (0.0-0.8); Monocytes % (Auto) 10 % (0-12); Neutrophils # (Auto) 2.6 Thou/mm3 (1.8-7.7); Neutrophils % (Auto) 50 % (37-80); Nucleated Red Blood Cell # 0.00 Thou/mm3 (0.00-0.00); Nucleated Red Blood Cell % 0 /100 WBC (0); Platelet Count 213 Thou/mm3 (140-440); RDW Standard Deviation 43.6 fL (36.4-46.3); Red Blood Count 3.98 Miln/mm3 (4.00-5.20); White Blood Count 5.2 Thou/mm3 (3.6-11.0)
[2025-03-08 14:25] LABS: Bilirubin,Direct 0.2 mg/dL (0.0-0.3); Bilirubin,Indirect 0.5 mg/dL (0.0-1.1); Bilirubin,Total 0.7 mg/dL (0.3-1.2)
[2025-03-08 14:26] LABS: Alanine Aminotransferase 62 U/L (10-49); Albumin, Serum 4.4 gm/dL (3.5-5.0); Albumin/Globulin Ratio 1.7 (1.2-2.2); Alkaline Phosphatase 294 U/L (46-116); Anion Gap 10 (7-16); Aspartate Amino Transferase 49 U/L (0-34); BUN/Creatinine Ratio 24 Ratio (12-20); Bilirubin,Total 0.7 mg/dL (0.3-1.2); Blood Urea Nitrogen 12 mg/dL (9-23); Calcium 10.0 mg/dL (8.3-10.6); Calcium (Corrected) 10.0 mg/dL (8.5-10.1); Carbon Dioxide 24.0 mMol/L (20.0-31.0); Chloride 107 mMol/L (98-107); Creatinine (Component) 0.5 mg/dL (0.6-1.3); Globulin 2.6 gm/dL (2.3-3.5); Glucose 92 mg/dL (74-106); Osmolality,Calculated 280 (275-295); Potassium 3.6 mMol/L (3.4-5.1); Sodium 141 mMol/L (136-145); Total Protein 7.0 gm/dL (5.7-8.2); eGFR > 60 See Note
[2025-03-16 15:17] LABS: Basophils # (Auto) 0.0 Thou/mm3 (0.0-0.2); Basophils % (Auto) 0 % (0-2.5); Eosinophils # (Auto) 0.2 Thou/mm3 (0.0-0.5); Eosinophils % (Auto) 4 % (0-10); Hematocrit 33.1 % (36.0-46.0); Hemoglobin 11.2 g/dL (12.0-16.0); Immature Granulocytes Auto 0.02 Thou/mm3 (0.00-0.00); Lymphocytes # (Auto) 1.6 Thou/mm3 (1.0-4.8); Lymphocytes % (Auto) 32 % (10-50); Mean Corpuscular HGB Conc 33.8 g/dl (31.0-37.0); Mean Corpuscular Hemoglobin 28.9 pg (25.0-35.0); Mean Corpuscular Volume 86 fL (80-100); Monocytes # (Auto) 0.6 Thou/mm3 (0.0-0.8); Monocytes % (Auto) 11 % (0-12); Neutrophils # (Auto) 2.5 Thou/mm3 (1.8-7.7); Neutrophils % (Auto) 52 % (37-80); Nucleated Red Blood Cell # 0.00 Thou/mm3 (0.00-0.00); Nucleated Red Blood Cell % 0 /100 WBC (0); Platelet Count 103 Thou/mm3 (140-440); RDW Standard Deviation 43.0 fL (36.4-46.3); Red Blood Count 3.87 Miln/mm3 (4.00-5.20); White Blood Count 4.9 Thou/mm3 (3.6-11.0)
[2025-03-16 15:34] LABS: Alanine Aminotransferase 111 U/L (10-49); Albumin, Serum 4.4 gm/dL (3.5-5.0); Albumin/Globulin Ratio 1.8 (1.2-2.2); Alkaline Phosphatase 355 U/L (46-116); Anion Gap 10 (7-16); Aspartate Amino Transferase 90 U/L (0-34); BUN/Creatinine Ratio 26 Ratio (12-20); Bilirubin,Total 0.7 mg/dL (0.3-1.2); Blood Urea Nitrogen 13 mg/dL (9-23); Calcium 9.7 mg/dL (8.3-10.6); Calcium (Corrected) 9.7 mg/dL (8.5-10.1); Carbon Dioxide 26.3 mMol/L (20.0-31.0); Chloride 105 mMol/L (98-107); Creatinine (Component) 0.5 mg/dL (0.6-1.3); Globulin 2.4 gm/dL (2.3-3.5); Glucose 145 mg/dL (74-106); Osmolality,Calculated 284 (275-295); Potassium 3.4 mMol/L (3.4-5.1); Sodium 141 mMol/L (136-145); Total Protein 6.8 gm/dL (5.7-8.2); eGFR > 60 See Note
== END 2025-03-26 23:59 | disposition home or self-care (01) ==
LOC: SCTC 14:26
PROVIDERS: PCP Registered Nurse Community Health; Referring Provider Registered Nurse Community Health; Visit Provider Internal Medicine Hematology & Oncology
DX: Z51.11 Encounter for antineoplastic chemotherapy (principal); C50.811 Malignant neoplasm of overlapping sites of right female breast; C77.3 Secondary and unspecified malignant neoplasm of axilla and upper limb lymph nodes; Z17.1 Estrogen receptor negative status [ER-]; Z17.22 Progesterone receptor negative status; Z17.31 Human epidermal growth factor receptor 2 positive status; Z90.11 Acquired absence of right breast and nipple; R74.8 Abnormal levels of other serum enzymes
CPT/HCPCS: 36591; 80053; 82247; 82248; 84443; 85025; 96360; 96367; 96413; A4216; J1100; J1642; J2405; J7030; J7040; J7050; J9354

== ENCOUNTER 2025-04-04 14:09 | Outpatient (RCR) | payer BC, MEDICAID, SELFPAY ==
[2025-03-23 14:50] LABS: Basophils # (Auto) 0.0 Thou/mm3 (0.0-0.2); Basophils % (Auto) 0 % (0-2.5); Eosinophils # (Auto) 0.1 Thou/mm3 (0.0-0.5); Eosinophils % (Auto) 2 % (0-10); Hematocrit 34.2 % (36.0-46.0); Hemoglobin 11.4 g/dL (12.0-16.0); Immature Granulocytes Auto 0.01 Thou/mm3 (0.00-0.00); Lymphocytes # (Auto) 1.9 Thou/mm3 (1.0-4.8); Lymphocytes % (Auto) 34 % (10-50); Mean Corpuscular HGB Conc 33.3 g/dl (31.0-37.0); Mean Corpuscular Hemoglobin 28.3 pg (25.0-35.0); Mean Corpuscular Volume 85 fL (80-100); Monocytes # (Auto) 0.6 Thou/mm3 (0.0-0.8); Monocytes % (Auto) 10 % (0-12); Neutrophils # (Auto) 3.0 Thou/mm3 (1.8-7.7); Neutrophils % (Auto) 53 % (37-80); Nucleated Red Blood Cell # 0.00 Thou/mm3 (0.00-0.00); Nucleated Red Blood Cell % 0 /100 WBC (0); Platelet Count 136 Thou/mm3 (140-440); RDW Standard Deviation 43.5 fL (36.4-46.3); Red Blood Count 4.03 Miln/mm3 (4.00-5.20); White Blood Count 5.6 Thou/mm3 (3.6-11.0)
[2025-03-23 15:18] LABS: Alanine Aminotransferase 92 U/L (10-49); Albumin, Serum 4.4 gm/dL (3.5-5.0); Albumin/Globulin Ratio 1.8 (1.2-2.2); Alkaline Phosphatase 350 U/L (46-116); Anion Gap 9 (7-16); Aspartate Amino Transferase 73 U/L (0-34); BUN/Creatinine Ratio 20 Ratio (12-20); Bilirubin,Total 0.8 mg/dL (0.3-1.2); Blood Urea Nitrogen 10 mg/dL (9-23); Calcium 9.8 mg/dL (8.3-10.6); Calcium (Corrected) 9.8 mg/dL (8.5-10.1); Carbon Dioxide 25.4 mMol/L (20.0-31.0); Chloride 107 mMol/L (98-107); Creatinine (Component) 0.5 mg/dL (0.6-1.3); Globulin 2.5 gm/dL (2.3-3.5); Glucose 114 mg/dL (74-106); Osmolality,Calculated 281 (275-295); Potassium 3.5 mMol/L (3.4-5.1); Sodium 141 mMol/L (136-145); Total Protein 6.9 gm/dL (5.7-8.2); eGFR > 60 See Note
[2025-03-29 11:35] LABS: Basophils # (Auto) 0.0 Thou/mm3 (0.0-0.2); Basophils % (Auto) 1 % (0-2.5); Eosinophils # (Auto) 0.1 Thou/mm3 (0.0-0.5); Eosinophils % (Auto) 1 % (0-10); Hematocrit 33.7 % (36.0-46.0); Hemoglobin 11.1 g/dL (12.0-16.0); Immature Granulocytes Auto 0.01 Thou/mm3 (0.00-0.00); Lymphocytes # (Auto) 1.7 Thou/mm3 (1.0-4.8); Lymphocytes % (Auto) 38 % (10-50); Mean Corpuscular HGB Conc 32.9 g/dl (31.0-37.0); Mean Corpuscular Hemoglobin 28.2 pg (25.0-35.0); Mean Corpuscular Volume 86 fL (80-100); Monocytes # (Auto) 0.4 Thou/mm3 (0.0-0.8); Monocytes % (Auto) 10 % (0-12); Neutrophils # (Auto) 2.2 Thou/mm3 (1.8-7.7); Neutrophils % (Auto) 50 % (37-80); Nucleated Red Blood Cell # 0.00 Thou/mm3 (0.00-0.00); Nucleated Red Blood Cell % 0 /100 WBC (0); Platelet Count 183 Thou/mm3 (140-440); RDW Standard Deviation 44.1 fL (36.4-46.3); Red Blood Count 3.94 Miln/mm3 (4.00-5.20); White Blood Count 4.4 Thou/mm3 (3.6-11.0)
[2025-03-29 11:54] LABS: Alanine Aminotransferase 90 U/L (10-49); Albumin, Serum 4.4 gm/dL (3.5-5.0); Albumin/Globulin Ratio 1.8 (1.2-2.2); Alkaline Phosphatase 333 U/L (46-116); Anion Gap 11 (7-16); Aspartate Amino Transferase 79 U/L (0-34); BUN/Creatinine Ratio 20 Ratio (12-20); Bilirubin,Total 0.7 mg/dL (0.3-1.2); Blood Urea Nitrogen 10 mg/dL (9-23); Calcium 10.3 mg/dL (8.3-10.6); Calcium (Corrected) 10.3 mg/dL (8.5-10.1); Carbon Dioxide 25.5 mMol/L (20.0-31.0); Chloride 108 mMol/L (98-107); Creatinine (Component) 0.5 mg/dL (0.6-1.3); Globulin 2.4 gm/dL (2.3-3.5); Glucose 112 mg/dL (74-106); Osmolality,Calculated 286 (275-295); Potassium 3.3 mMol/L (3.4-5.1); Sodium 144 mMol/L (136-145); Total Protein 6.8 gm/dL (5.7-8.2); eGFR > 60 See Note
[2025-03-29 11:55] LABS: Bilirubin,Direct 0.2 mg/dL (0.0-0.3); Bilirubin,Indirect 0.5 mg/dL (0.0-1.1); Bilirubin,Total 0.7 mg/dL (0.3-1.2)
--- NOTE | 2025-04-09 20:07 | CTCFLWUP_ITS ---
Patient: FEMI BUNCH : 1980 Page 10 of 12 FOLLOW UP NOTE DATE OF SERVICE: 04/03/2025 NAME: FEMI BUNCH ACCOUNT: [id number] : 1980 AGE: 44 INTERVAL HISTORY: Summary Femi Bunch, a female with breast cancer, presented for follow-up of ongoing Herceptin treatment and elevated liver enzymes. Her history includes depression, which is well-controlled. She has completed 9 Kadcyla treatments and 6 Herceptin treatments . her liver enzymes are elevated with inflammation present despite no cancer or cysts. Recent left breast mammogram was completed outside [facility] and was negative as per patient. ONCOLOGY HISTORY:?[facility] Hx? 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)., ER negative, KS negative, HER2/pranay overexpressed s/p biopsy of right breast mass as well as right axillary lesions on 05/05/2023 STAGE/TNM: Stage 3 TREATMENT HISTORY: Care?Plan Start?Date Cycle Day Intent DOCETAXEL,?CARBO,?HERCEPTIN,?PERJETA,?KADCYLA 06/08/2023 1 21 Curative?(primary) Taxol?80mg*2?wkly,?Herceptin,?Perjeta 07/12/2023 1 21 Curative?(primary) Taxotere,?Carboplatin,?Trastuzumab?1 07/21/2023 1 21 Curative?(primary) Zoledronic?Acid?4?mg?adjuvant 01/06/2024 1 180 Curative?(adjuvant) DOXOrubicin?60,?Cyclophos?600 01/21/2024 1 14 Curative?(adjuvant) KADCYLA?post-neoadjuvant 03/24/2024 1 21 Curative?(adjuvant) Trastuzumab?6?mg/kg? To?Finish?the?Year 10/11/2024 1 21 Curative?(adjuvant) HISTORY OF PRESENT ILLNESS: Femi Khan is a 44-year-old SPA speaking female without any significant past medical history has the following oncology history. 07/04/2019: Ms. Khan had right breast diagnostic mammogram for right breast pain of 1 year duration along with palpable masses in the right breast on clinical breast examination 2 months before 07/04/2019: Right breast ultrasound 08/16/2020: Bilateral diagnostic digital mammography? 08/16/2020: Right breast ultrasound was obtained for unspecified lump in the right breast 02/18/2022: Bilateral screening digital mammograms 02/02/2023: Bilateral screening mammograms 04/02/2023: Right breast ultrasound 04/02/2023: Right breast diagnosed mammogram? 04/21/2023: Right breast diagnostic mammogram 05/05/2023: Ultrasound-guided percutaneous biopsy of the right breast mass 05/25/2023: PET/CT scan 05/27/2023: BRCA 1and2 1 and 2 urinalysis 06/08/2023: AST 26, ALT 37, T. bili 0.4 06/08/2023: Ms. Bunch had first cycle of TCHP chemotherapy in the neoadjuvant setting. 06/26/2023: AST 52, ALT 78, T. bili 0.6 06/29/2023: AST 50, ALT 88 07/02/2023: AST 60, ALT 127, alk phos 121 07/07/2023: AST 22, ALT 52, alkaline phosphatase 115. 07/07/2023: Chemotherapy changed to weekly Taxol, Herceptin and Perjeta in view of elevated transaminases. 07/14/2023: AST 81, ALT 125, alk phos 145. 07/07/2023: Ultrasound of the abdomen 07/14/2023: Hepatitis panel negative 07/21/2023: AST 38, ALT 58, alkaline phosphatase 154. 07/21/2023: Ms. Bunch received Taxotere, carboplatin and trastuzumab. Perjeta held again due to elevated liver enzymes. 08/11/2023: Ms. Bunch received second cycle of Taxotere, carboplatin and trastuzumab. 09/01/2023: Ms. Bunch received third cycle of Taxotere, carboplatin and trastuzumab. 09/22/2023: Ms. Bunch received fourth cycle of Taxotere, carboplatin and trastuzumab chemotherapy 11/05/2023: PET/CT scan 11/06/2023: Bilateral breast MRI with and without contrast 12/03/2022: Ms. Bunch had what appears to be right-sided modified radical mastectomy at [facility]. 03/16/2024: CT scan of the chest abdomen pelvis with IV contrast 03/20/2024: Ms. Bunch is started on adjuvant radiation therapy to the right chest wall in [place]. 03/24/2024: Ms. Bunch is started on adjuvant Ado-Trastuzumab Emtansine (Kadcyla) OTHER MEDICAL HISTORY/CONDITIONS: BREAST?CA,?COVID ?2016,?TUBAL?LIGATION?2016 FAMILY HISTORY: Father:?DENIES Mother:?DENIES Sibling:?DENIES Children:?DENIES Cancer History:?paternal aunt stomach living maternal aunt colon living Patient?denies?family?cancer?history. SOCIAL HISTORY: Occupational?History:?[employer] Education?Level:?Completed High School Marital?Status:? Tobacco?Pack?per?Day:?0 Tobacco?Use:?DENIES ETOH?Use:?DENIES Drug?Note:?denies Social?History?Note:?lives?with?family [employer] MANAGER HISTORY: Menarche?-?Age:?13 Date?of?last?pap?smear:?DECEMBER?2021 Hormone?Use:? CONTROL USE YEARS AGO :?5 Live?Births:?3 Age?1st?:?25 Gynecological?Note:?2?MISCARRIAGES Gynecological?Note?2:?1 SISTER, 2 DAUGHTERS, 5MATERNAL AUNTS, 6 PATERNAL AUNTS MEDICATIONS: 1. None?[place] Meds? Medications Last Reconciled by Nicky Soliz MD on 04/03/2025 ALLERGIES: PENICILLAMINE REVIEW OF SYSTEMS: A complete 14-point review of systems was performed and is negative except as noted in interval history. PHYSICAL EXAMINATION:?[facility]oneBlock PE? VITAL SIGNS: Temperature?97.9, B/P?120/77, Oxygen?Saturation?95% Weight?154?lbs (Change?since?03/30/25:?-0.8?lbs) PAIN: 0 - No pain ECOG Performance Status: 0 - Asymptomatic and fully active GENERAL APPEARANCE: Appears well, in no apparent distress, appropriately interactive. HEENT: Normocephalic, no temporal wasting, normal conjunctiva, no scleral icterus, normal hearing, lips without lesions, neck normal range of motion. CARDIOVASCULAR: Not assessed. PULMONARY: Normal respiratory effort, no respiratory distress or use of accessory muscles, speaking in full sentences, no tachypnea. EXTREMITIES: No pedal edema or cyanosis. SKIN: Normal skin appearance. NEUROLOGIC: Alert and oriented x4. PSHYCHIATRIC: Appropriate affect, mood normal, behavior normal, intact thought and speech. Vital Signs - Blood Pressure: 113/73 mmHg Laboratory, Imaging, and Diagnostic Test Results - Liver enzymes: Elevated, higher than previous results LABORATORY DATA: I have personally reviewed and interpreted each of the patient?s relevant lab tests, abnormal findings are below: Date 03/23/25 03/29/25 ??WHITE?BLOOD?COUNT?(Thou/mm3) 5.6 4.4 ??RED?BLOOD?COUNT?(Miln/mm3) 4.03 3.94?L ??HEMOGLOBIN?(gm/dl) 11.4?L 11.1?L ??HEMATOCRIT?(%) 34.2?L 33.7?L ??PLATELET?COUNT?(Thou/mm3) 136?L 183 ??NEUTROPHILS?%,?AUTO?(%) 53 50 ??LYMPH?%,?AUTO?(%) 34 38 ??NEUTROPHILS,?AUTO?(Thou/mm3) 3.0 2.2 ??GLUCOSE,RANDOM?(mg/dL) ? 112?H ??BLOOD?UREA?NITROGEN?(mg/dL) ? 10 ??CREATININE?(mg/dL) ? 0.50?L ??SODIUM?(mmol/L) ? 144 ??POTASSIUM?(mmol/L) ? 3.3?L ??CHLORIDE?(mmol/L) ? 108?H ??CrCl?(CandG)?(ml/min) ? 161.65 ??AST/SGOT?(Unit/L) ? 79?H ??ALT/SGPT?(Unit/L) ? 90?H ??ALKALINE?PHOSPHATASE?(Unit/L) ? 333?H ??BILIRUBIN,?TOTAL?(mg/dL) ? 0.7 ??PROTEIN?TOTAL?(gm/dl) ? 6.8 ??ALBUMIN,?SERUM?(gm/dl) ? 4.4 ??GLOBULIN?(gm/dl) ? 2.4 ??ALBUMIN/GLOBULIN?RATIO ? 1.8 ??CALCIUM,?SERUM?(mg/dL) ? 10.3 ??CALCIUM?SERUM?(CORRECTED)?(mg/dL) ? 10.3?H ASSESSMENT/PLAN:?Eleazar Juarez Assessment/Plan? 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 FISH was negative. At [facility] patient was told to be triple negative completed 12 moths of kadcyle and Herceptin in adjuvant setting Had multiple breaks in the therapy secondary to transaminitis Patient has now completed 1 year of her2 therapy Discussed surveillance with Ms. Bunch Patient will be seen in clinic at least every 6 months Imaging as needed Physical Therapy Assessment: Patient has been approved for physical therapy from September to March. Plan: - Continue physical therapy as approved - Reassess need for ongoing physical therapy at next visit ORDERS: Order # Description [id number] CBC + Comprehensive Metabolic Panel [id number] Lab Appointment [id number] Follow Up Appointment [id number] Infusion 1 Hour RETURN TO CLINIC: I reviewed the diagnosis, prognosis, and recommended treatment/procedure options with the patient (and/or their legal home furnishings sales representative), including the potential benefits, risks, side effects and alternative therapies. We also discussed the option of no treatment and the possibility of clinical trial participation, if applicable. All questions were addressed, and they demonstrated understanding. They provided informed consent to proceed with the proposed plan of care. BILLING AND COMPLIANCE: I reviewed external records from providers outside my specialty as summarized above. I spent a total of 50 minutes on this patient?s care on the day of their visit excluding time spent related to any billed procedures. This time includes time spent with the patient as well as time spent documenting in the medical record, reviewing patients records and tests, obtaining history, placing orders, communicating with other healthcare professionals, counseling the patient, family or caregiver, and/or care coordination for the diagnoses above. Electronically Signed by: Orville Juarez MD T: 8:05 PM CC: PCP: Krysta Oliveira Referring: Krysta Oliveira This document was completed utilizing speech recognition software. Grammatical errors, random word insertions, pronoun errors, and incomplete sentences are an occasional consequence of this system due to software limitations, ambient noise, and hardware issues. Any formal questions or concerns about the content, text or information contained within the body of this dictation should be directly addressed to the provider for clarification.
== END 2025-04-25 23:59 | disposition home or self-care (01) ==
LOC: SCTC 14:09
PROVIDERS: PCP Registered Nurse Community Health; Referring Provider Registered Nurse Community Health; Visit Provider Internal Medicine Hematology & Oncology
DX: Z51.11 Encounter for antineoplastic chemotherapy (principal); C50.811 Malignant neoplasm of overlapping sites of right female breast; Z17.1 Estrogen receptor negative status [ER-]; Z17.22 Progesterone receptor negative status; Z17.31 Human epidermal growth factor receptor 2 positive status; Z90.11 Acquired absence of right breast and nipple; R74.01 Elevation of levels of liver transaminase levels
CPT/HCPCS: 36591; 80053; 82247; 82248; 85025; 96360; 96367; 96413; 99212; A4216; J1100; J1642; J2405; J3490; J7030; J7040; J7050; J9354; G0463

== ENCOUNTER → 2025-04-11 | Outpatient (CLI) | payer BC, MEDICAID, SELFPAY ==
--- NOTE | 2025-04-11 11:00 | XR_ITS ---
EXAMINATION: PET/CT FUSION SKULL TO THIGH EXAM DATE AND TIME: April 11, 2025 1220 hours, comparison June 30, [address] scan, CT chest June 29, 2024, CT chest March 16, 2024 INDICATIONS: Diagnosis breast cancer post treatment restaging CTDI:vol (mGy) 4.83 DLP: (mGycm) 441 PROCEDURE: 14.1 mCi FDG was administered intravenously To allow for distribution and uptake of radiotracer, the patient was allowed to rest quietly in a shielded room. Imaging was performed on an integrated 16-slice PET/CT scanner, with scanning from the skull base to the mid thigh. Serum blood glucose at the time of the injection was measured 109 mg/dL. CT scanning was performed without oral or intravenous contrast material. FINDINGS: Head and Neck: There is no willie hypermetabolism in the neck. The visualized portions of the brain are normal in appearance on CT. Chest: There is no willie hypermetabolism in the chest. There are no pulmonary nodules. Right mastectomy, right axillary surgical clips No hypermetabolic breast chest wall or axillary masses Abdomen and Pelvis: There is no willie hypermetabolism in retroperitoneal or pelvic chains. The spleen is normal in size and FDG avidity. Musculoskeletal: Marrow uptake is within normal range. IMPRESSION: No interval metastatic disease
== END | disposition home or self-care (01) ==
LOC: CDIM 11:05
PROVIDERS: Referring Provider Registered Nurse Community Health; Visit Provider Internal Medicine Hematology & Oncology
DX: C50.411 Malignant neoplasm of upper-outer quadrant of right female breast (principal)
CPT/HCPCS: 78815; A9552

== ENCOUNTER 2025-04-24 10:00 | Outpatient (RCR) | payer BC, MEDICAID, SELFPAY ==
--- NOTE | 2025-04-13 10:04 | PTNOTE_ITS ---
PT OP Initial Eval Patient Information Outpatient Physical Therapy Treatment Date: 04/13/25 Visit Reasons: LEFT SHOULDER PAIN Medical Diagnosis: L shoulder pain Treatment Dx #1: L shoulder pain Treatment Dx #2: Decreased L shoulder ROM Start of Care: 04/13/25 Date of Onset: 1 yr ago Smoking Status Smoking Status: Never smoker Initial Assessment Subjective: Pt is 44 yr old hungarian speaking female who c/o L shoulder pain x1 yr attributed to using that shoulder more after R mastectomy. Increased pain with reaching OH, lifting the UE, laying on the L side and changing clothes along with HH chores. PMH: R mastectomy, Imaging: none of L shoulder Pt goal: to get rid of the pain in L shoulder Objective: L shoulder ArOM: Strength: FF: 90 deg 3-/5 ABD: 90 deg with pain 3-/5 ER: 70 deg with pain HBB: L5 without pain Impingement cross body: positive Painful arc: positive Assessment: Pt presents with decreased ROM with OH reaching and strength consistent with L shoulder impingement and possible adhesive capsulitis. Pt requires skilled therapy and has fair rehab potential to meet goals. Short Term and Social Welfare Research Worker Goals 1. Ind with HEP ? 2. Improved AROM of L shoulder to at least 135 deg FF, 125 deg abduction and 90 deg ? ER ? 3. Improved HBB ROM to L3 ? 4. Pt will reach OH x10 with <=4/10 pain Treatment Plan 1. Manual therapy ? 2. Therex ? 3. Modalities as indicated, moist heat pack, ice, electrical sti mulation Frequency and Duration: 1-2x a week for 12 sessions plus the evaluation Certification Dates: 04/13/25 to 07/11/25 Procedure Charges OP PT Eval Mod Complex 30 minutes: Yes
--- NOTE | 2025-04-18 12:46 | PT.ODAYNRPT ---
PT Outpatient Daily Note OP Daily Note Outpatient Physical Therapy Treatment Date: 04/18/25 Visit Reasons: LEFT SHOULDER PAIN Subjective: Pt c/o minimal Lt shoulder pain and explains pain increases with OH movements. Objective: See F/S for therex performed Assessment: No increase in pain with therex. Required minimal vc's to remain in pain free ROM with exercises; pt complied. Presents with decreased ROM with shoulder flexion and abduction; increase in range with active assisted exercises. Plan: Continue with POC Length of Time (minutes) of Treatment: 30 Minutes Procedure Charges Therapeutic Exercise 30 minutes: Yes
--- NOTE | 2025-04-20 10:42 | PT.ODAYNRPT ---
PT Outpatient Daily Note OP Daily Note Outpatient Physical Therapy Treatment Date: 04/20/25 Visit Reasons: LEFT SHOULDER PAIN Subjective: Pt c/o minimal Lt shoulder pain, reports a decrease in pain since her last PT session. Objective: See F/S for therex performed Assessment: Improved ROM and tolerance with AAROM Lt shoulder exercise with the wand; min vc's required to avoid trunk rotation. Plan: Continue with POC Length of Time (minutes) of Treatment: 30 Minutes Procedure Charges Therapeutic Exercise 30 minutes: Yes
--- NOTE | 2025-04-24 10:53 | PT.ODAYNRPT ---
PT Outpatient Daily Note OP Daily Note Outpatient Physical Therapy Treatment Date: 04/24/25 Visit Reasons: LEFT SHOULDER PAIN Subjective: Pt reports improvement with Lt shoulder and explains she is experiencing less pain with OH reaching. Objective: See F/S for therex performed Assessment: Demo'd increased AROM with Lt shoulder flexion and abduction. Progressed to scap exercises and ER exercise with theraband; good tolerance with no increase in pain. Ice pack applied post session. Plan: Continue with POC Length of Time (minutes) of Treatment: 30 Minutes Procedure Charges Therapeutic Exercise 30 minutes: Yes
== END 2025-04-25 23:59 | disposition home or self-care (01) ==
LOC: CPTX 10:00
PROVIDERS: PCP Internal Medicine Hematology & Oncology; Referring Provider Internal Medicine Hematology & Oncology; Visit Provider Internal Medicine Hematology & Oncology
DX: M25.512 Pain in left shoulder (principal)
CPT/HCPCS: 97110; 97162

== ENCOUNTER 2025-04-26 10:06 | Outpatient (RCR) | payer BC, MEDICAID, SELFPAY ==
--- NOTE | 2025-04-26 10:44 | PT.ODAYNRPT ---
PT Outpatient Daily Note OP Daily Note Outpatient Physical Therapy Treatment Date: 04/26/25 Visit Reasons: Left shoulder pain Subjective: Pt c/o minimal pain with Lt shoulder, reports improvement with OH activities and experiencing less pain than before. Objective: See F/S for therex performed Assessment: Demos improvement to Lt shoulder flexion and abduction AROM, flexion greater than abduction along with no longer compensating with UT. Improved tolerance with therex due to decrease in pain to Lt shoulder. Ice pack applied post session. Plan: Continue with POC Length of Time (minutes) of Treatment: 30 Minutes Procedure Charges Therapeutic Exercise 30 minutes: Yes
== END 2025-05-26 23:59 | disposition home or self-care (01) ==
LOC: CPTX 10:06
PROVIDERS: PCP Internal Medicine Hematology & Oncology; Referring Provider Internal Medicine Hematology & Oncology; Visit Provider Internal Medicine Hematology & Oncology
DX: M25.512 Pain in left shoulder (principal)
CPT/HCPCS: 97110

== ENCOUNTER → 2025-06-08 | Outpatient (CLI) | payer BC, MEDICAID, SELFPAY ==
--- NOTE | 2025-06-08 10:39 | ECHO_ITS ---
Patient Info Name: Jeanie Cardenas Age: 44 years : 1980 Gender: Female Ht: 155 cm Wt: 63 kg BSA: 1.66 m2 BP: 107 / 65 mmHg HR: 77 bpm Exam Date: 06/08/2025 10:50 AM Admit Date: 06/08/2025 Site: [facility] Room Number: ECHO Patient Status: O Exam Type: CA echo doppler complete Brewing Director: Anya Gomez Ordering Physician: Ayden Short Referring Physician: Orville Juarez Study Info Indications MALIGNANT NEOPLASM OF UPPER-OUTER QUADRANT OF RIGHT BREAST - Primary Location: [facility] Left Ventricular Outflow Tract Name Value Normal LVOT 2D LVOT Diameter 1.8 cm LVOT Doppler LVOT Peak Velocity 100 cm/s LVOT Mean Gradient 2 mmHg LVOT VTI 21 cm LVOT VTI/AV VTI Ratio 0.8 LVOT Stroke Volume 53 ml Pulmonic Valve Name Value Normal PV Doppler PV Peak Velocity 95 cm/s Mitral Valve Name Value Normal MV Doppler MV Decel [place] 1,019 cm/s2 MV PHT 18 ms MV Area (PHT) 12.0 cm2 4.0-5.0 MV Diastolic Function MV E Peak Velocity 65 cm/s MV A Peak Velocity 72 cm/s MV E/A 0.9 MV Annular TDI MV Septal e' Velocity 8.1 cm/s MV E/e' (Septal) 8.0 MV Lateral e' Velocity 8.9 cm/s MV E/e' (Lateral) 7.2 MV e' Average 8.49 cm/s MV E/e' (Average) 7.6 Tricuspid Valve Name Value Normal TV Regurgitation Doppler TR Peak Velocity 197 cm/s Estimated PAP/RSVP RA Pressure 3 mmHg <=5 PA Systolic Pressure 19 mmHg <36 RV Systolic Pressure 19 mmHg <36 Aortic Valve Name Value Normal AV 2D/MM AV Cusp Sep (MM) 1.1 cm AV Doppler AV Peak Velocity 130 cm/s AV Mean Gradient 4 mmHg AV VTI 26 cm AV Area (Cont Eq VTI) 2.1 cm2 >=3.0 AV Area (Cont Eq Heladio) 2.0 cm2 AV DI (Heladio) 0.77 AV Regurgitation 2D LVOT Area 2.5 cm2 Ventricles Name Value Normal LV Dimensions 2D/MM IVS Diastolic Thickness (2D) 0.9 cm 0.6-0.9 LVID Diastole (2D) 4.6 cm 3.8-5.2 LVIW Diastolic Thickness (2D) 1.0 cm 0.6-0.9 LVID Systole (2D) 2.9 cm 2.2-3.5 LVOT Diameter 1.8 cm LV Mass (2D Cubed) 148.10 g 67.00-162.00 LV Mass Index (2D Cubed) 89 g/m2 43-95 Relative Wall Thickness (2D) 0.43 <=0.42 IVS/LVIW Diastolic Thickness (2D) 0.90 0.00-1.50 LV Fractional Shortening/Ejection Fraction 2D/MM LV Fractional Shortening (2D) 37 % 27-45 LV EF (2D Teichholz) 67 % Atria Name Value Normal LA Dimensions LA Volume (4C A-L) 38 ml LA Volume (BP A-L) 30 ml Left Ventricle Left ventricular chamber dimension is normal. Left ventricular systolic function is normal with visually estimated ejection fraction of 60-65%. There is concentric remodeling noted in the left ventricle. Left ventricular segmental wall motion is normal. There is grade I diastolic dysfunction in the left ventricle. Right Ventricle Right ventricular chamber dimension is normal. Right ventricular systolic function is normal. Left Atrium Left atrial chamber dimension is normal. Right Atrium Right atrial chamber dimension is normal. Aortic Valve The aortic valve is trileaflet. There is no aortic valve sclerosis. There is no aortic valve stenosis with a peak velocity of 130 cm/s, mean gradient of 4 mmHg, and aortic valve area of 2.1 cm2. There is no aortic valve regurgitation. Pulmonic Valve The pulmonic valve is normal. There is no pulmonic valve stenosis. There is no pulmonic regurgitation. Mitral Valve The mitral valve has normal leaflets. There is no mitral valve stenosis. There is trace mitral valve regurgitation. Tricuspid Valve The tricuspid valve leaflets are normal. There is no tricuspid valve stenosis. There is trace tricuspid valve regurgitation. No pulmonary hypertension, estimated pulmonary arterial systolic pressure is 19 mmHg and systemic blood pressure of 107 mmHg in systole. Pericardium/Pleural The pericardium appears normal. There is no pericardial effusion. No pleural effusion visualized. Inferior Vena Cava Normal inferior vena cava with >50% collapse upon inspiration consistent with normal right atrial pressure, 3 mmHg. Aorta The aortic measurements are indexed to age and body surface area. The aortic root at the sinus of Valsalva is not well visualized. The prox ascending aorta is not well visualized. Summary 1. Left ventricle size is normal and systolic function is normal. Estimated ejection fraction is 60-65%. There is grade I diastolic dysfunction. 2. Right ventricle chamber size is normal and systolic function is normal. Estimated RVSP is 19 mmHg. 3. There is trace mitral valve regurgitation. 4. There is trace tricuspid valve regurgitation. 5. Normal IVC with estimated RA pressure 3 mmHg. Report Signatures Finalized by José Miguel Aquino on 06/08/2025 12:04 PM
== END | disposition home or self-care (01) ==
PROVIDERS: PCP Registered Nurse Community Health; Referring Provider Internal Medicine Hematology & Oncology; Visit Provider Internal Medicine Hematology & Oncology
DX: I08.1 Rheumatic disorders of both mitral and tricuspid valves (principal); I50.30 Unspecified diastolic (congestive) heart failure; C50.411 Malignant neoplasm of upper-outer quadrant of right female breast
CPT/HCPCS: 93306